=== PATIENT | male | born 1975 | race Caucasian/White ===

== ENCOUNTER 2024-01-12 16:24 | Emergency (ER) | payer OTHER, SELFPAY ==
[2024-01-12 16:40] VITALS: BP 178/97; PULSE 67; RESP 22; TEMP 36.9; O2SAT 98; BMI 31.3
--- NOTE | 2024-01-12 16:45 | ED.GENADULT ---
HPI - General Adult General Chief complaint: Dizziness/Vertigo Stated complaint: Dizzy, loss of vision, numbness in arm Time Seen by Provider: 01/12/24 16:32 History of Present Illness HPI narrative: Pt c/o blurring vision, dizziness, and head feeling weird that started around 1500 today 48-year-old man presenting to the emergency department with concern of head feeling weird blurring of vision and dizziness beginning about 2 hours prior to arrival. 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 He began to have altered vision such that he was experiencing some geometric shapes at the periphery of his vision left more than right but seemed generally throughout the periphery. And then started to experience tunnel vision. Currently does endorse headache or a an intense burning in the posterior head. He did not have weakness specifically. Did have a sense of lightheadedness more than actual dizziness though he did feel little unsteady one point. He is really worried that he is having a stroke. Underlying history of TBI having been in the and does have migraines. This is not like his history of migraines. He denies loss of sensation or hyperventilating. Does admit to feeling stressors anxious about this experience. He does recall that he felt like he lost a little bit of vision in the periphery at the left at 1 point. Related Data Home Medications Medication Instructions Recorded Confirmed losartan 50 mg tablet 50 mg PO ONCE 12/31/22 01/12/24 omeprazole 20 mg capsule,delayed 20 mg PO ONCE 12/31/22 01/12/24 release sildenafil 100 mg tablet 100 mg PO PRN sexual activity 12/31/22 09/19/23 Allergies Allergy/AdvReac Type Severity Reaction Status Date / Time Cephalosporins Allergy Severe Verified 01/12/24 16:43 shellfish derived Allergy Severe Anaphylaxis Verified 01/12/24 16:43 tree nut Allergy Severe Anaphylaxis Verified 01/12/24 16:43 Review of Systems Status of ROS: Reports: 6 or more systems reviewed and unremarkable except as noted in History and below [facility] Medical History Clavicle pain ?M89.8X1 - Other specified disorders of bone, shoulder (ICD-10) 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 Well built. Farm tattoos. Intermittent more flushed in his face is a seems to experience some more stress then pulling at the hair at the top of his head. Intermittently mildly increasing his rate of breathing. Cranial nerves 2-12 look to be intact. Moving all extremities without difficulty. At cranial nerves 2-12 are intact. Pupils are 3 mm equal briskly reactive and accommodating. Full visual holman bilaterally to confrontation. Extremities well perfused without edema. Heart with regular rate and rhythm. Lungs appear to be clear. Somewhat sore to palpation at the posterior gretchen cervical neck musculature at the insertion. Const: Vital Signs, click to edit/add: Vital Signs - 24 hr 01/12/24 16:40 01/12/24 17:20 Temperature 98.4 F Pulse Rate [Pulse Oximeter] 67 Respiratory Rate 22 Blood Pressure [Ri ght Upper Arm] 178/97 H Pulse Oximetry 98 98 Oxygen Delivery Me thod Room Air Room Air Documenting provider has reviewed patient's vital signs: yes Course Vital Signs Vital signs: Initial Vital Signs Temperature 98.4 F 01/12/24 16:40 Temperature Source Temporal Artery Scan 01/12/24 16:40 Pulse Rate 67 01/12/24 16:40 Respiratory Rate 22 01/12/24 16:40 Blood Pressure 178/97 H 01/12/24 16:40 Blood Pressure Mean 124 H 01/12/24 16:40 Blood Pressure Position Sitting 01/12/24 16:40 Pulse Oximetry 98 01/12/24 16:40 Oxygen Delivery Method Room Air 01/12/24 16:40 Vital Signs Temperature 98.4 F 01/12/24 16:40 Pulse Rate 67 01/12/24 16:40 Respiratory Rate 22 01/12/24 16:40 Blood Pressure 178/97 H 01/12/24 16:40 Pulse Oximetry 98 01/12/24 16:40 Oxygen Delivery Method Room Air 01/12/24 16:40 Temperature 98.4 F 01/12/24 16:40 Pulse Rate 67 01/12/24 16:40 Respiratory Rate 22 01/12/24 16:40 Blood Pressure 178/97 H 01/12/24 16:40 Pulse Oximetry 98 01/12/24 17:20 Oxygen Delivery Method Room Air 01/12/24 17:20 Medications Administered Medications: Discontinued Medications Generic Name Dose Route Start Last Admin Trade Name Bertha PRN Reason Stop Dose Admin Diazepam 2.5 mg 01/12/24 17:00 01/12/24 17:39 Diazepam 5 Mg/Ml Inj IV 01/12/24 17:01 2.5 mg ONCE ONE Administration Sodium Chloride 1,000 mls @ 1,000 mls/hr 01/12/24 17:00 01/12/24 18:07 0.9 % Sodium Chloride 1000 Ml IV 01/12/24 17:59 Infused .Q1H ONE Infusion Medical Decision Making MDM Narrative Medical decision making narrative: Frankly this appears to sound like migraine symptoms. Thirty stands to reason in the setting of history of TBI migraines. These are rather unusual symptoms though and perhaps a head CT would be warranted. Also new she IV and offered treatment for this apparent headache. He is overall improved with the visual symptoms have essentially faded. Left now with this burning headache. No weaknesses. IV fluids and low-dose Valium initially. I reviewed head CT imaging which looks to be unremarkable for acute abnormality. Over-read is pending. On reassessment he has received about 500 mL of normal saline. Overall is feeling improved. He looks less uncomfortable less anxious. He is just this time also receiving his Valium. I did discuss this case with Neurology. They in agreement that this is likely migraine. On reassessment symptoms have resolved. Definitely more relaxed. Discharge Plan Discharge Clinical Impression: Migraine Patient Disposition: Home w/ Parent or Adult Condition: Improved Additional Instructions: I am happy you are feeling better. Try to get a good night's sleep tonight. Stay well-hydrated. Return for new and focal weakness, persistent loss of vision, intractable headache. Prescriptions: No Action omeprazole 20 mg capsule,delayed release(DR/EC) 20 mg PO ONCE sildenafil 100 mg tablet 100 mg PO PRN (Reason: sexual activity) losartan 50 mg tablet 50 mg PO ONCE Follow Up/Referrals: Yokasta Balderas, OLIVIAC [Primary Care Provider] - Stand Alone Forms: [employer] Info Instructions
--- NOTE | 2024-01-12 17:00 | CT_ITS ---
Patient: LAZARA SARMIENTO Facility:?[facility] Patient ID:?[id number] Site Patient ID:?[id number]. Site :?[id number] Study:?CT-Head WITHOUT-01/12/2024 5:21:07 PM Ordering Physician:FUAD Final Report: INDICATION: ROSADO, VISION CHANGES, HEAD PRESSURE. HX OF RENAL CANCER TECHNIQUE: CT of the head was performed without IV contrast. COMPARISON: None. FINDINGS: Parenchyma: No acute hemorrhage, infarction, or mass. Ventricles and extra-axial spaces: Appropriate for age. Visualized paranasal sinuses: Moderate mucosal thickening of the bilateral ethmoid sinuses. Mild mucosal thickening of the bilateral maxillary sinuses. Mastoid air cells: Clear. Bones: No focal abnormality. Additional comment: None. IMPRESSION: 1. No acute intracranial abnormality. 2. Paranasal sinus mucosal thickening may represent acute sinusitis. Please note that all CT scans at this facility use dose modulation, iterative reconstruction, and/or weight-based dosing when appropriate to reduce radiation dose to as low as reasonably achievable. Dictated by Jose Juan Caceres MD @ 01/12/2024 5:57:31 PM Signed by:?Jose Juan Caceres MD @01/12/2024 5:57:31 PM (Electronic Signature)
[2024-01-12 17:20] VITALS: O2SAT 98
[2024-01-12] MEDS: 0.9 % SODIUM CHLORIDE 1000 ml 1,000 ML IV (17:30)
[2024-01-12] MEDS: diazePAM 5 MG/ML inj 2.5 MG IV (17:39)
== END 2024-01-12 19:26 | disposition home or self-care (01) ==
PROVIDERS: Emergency Provider Family Medicine; PCP Physician Assistant Medical
DX: G43.909 Migraine, unspecified, not intractable, without status migrainosus (principal)
CPT/HCPCS: 70450; 96374; 99284; J3360; J7030

== ENCOUNTER 2024-08-19 09:44 | Outpatient (CLI) | payer OTHER, SELFPAY ==
--- OUTSIDE RECORDS SUMMARY | 2024-08-19 09:50 | XMS_ITS | Continuity of Care Document ---
Author Name [facility] Organization [facility] Care Team Providers Care Nuclear Criticality Safety Engineer Name Role Phone [facility] Unavailable Unavailable Problems Combined list of problems from 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 It does not include entries that were removed or entered in error. Problem Status Onset Date Problem Type Date of Resolution Comments Source Exposure to potentially hazardous substance (RUST [id number]) Active 024 Condition Jan 22, 2024 Entered By: VLADIMIR GRIJALVA Comment: [facility] MARGE Documentation Initiative [facility] Strain of supraspinatus muscle AND/OR tendon Active 011 Condition [facility] visit for: refer patient without exam or treatment Active Condition DoD taking high-risk medication Active Condition DoD conditions influencing health status Active Condition DoD chronic pain Active Condition DoD visit for: issue repeat prescription for medication Inactive Condition DoD secondary insomnia Active Condition DoD depression Active Condition DoD axis IV problems occupational Active Condition DoD concussion Active Condition DoD visit for: screening exam traumatic brain injury Active Condition DoD visit for: screening mental / developmental disorders Inactive Condition DoD shoulder strain supraspinatus tendon right Inactive Condition DoD allergies Active Condition DoD bursitis subacromial Active Condition DoD joint pain, localized in the right shoulder Active Condition DoD tooth pain Active Condition DoD visit for: follow-up exam Inactive Condition DoD chest tightness or heavy pressure Inactive Condition DoD sleep disturbances Active Condition DoD sensorineural hearing loss Active Condition DoD assessment of patient condition work-related Active Condition DoD Central Auditory Function Test Nonspecific Abnormal Findings Active Condition DoD visit for: ears/hearing exam following abn hearing screening Active Condition DoD astigmatism regular Active Condition DoD refractive error - hypermetropia Active Condition DoD insomnia Active Condition DoD visit for: preoperative exam Inactive Condition DoD pain in the hands Active Condition DoD Occupational Therapy Active Condition DoD Aftercare Active Condition DoD joint pain, localized in the wrist Active Condition DoD visit for: administrative purpose Inactive Condition DoD Aftercare Following Surgery Active Condition DoD nontraumatic tendon rupture biceps Active Condition DoD wound infection Inactive Condition DoD patient's noncompliance with therapy Active Condition DoD Aftercare Following Surgery Of Musculoskeletal System Inactive Condition [facility] osteoarthritis localized secondary left little finger PIP Active Condition [facility] bone neoplasm, 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 Inactive Condition [facility] Aftercare Following Surgery For Injury / Trauma Inactive Condition [facility] Aftercare Orthopedic Active Condition [facility] Brace Inactive Condition [facility] adjustment disorder Active Condition [facility] visit for: screening exam pulmonary tuberculosis Inactive Condition [facility] Need For Vaccination Against Influenza Inactive Condition [facility] Blood Pressure Isolated Elevated Active Condition [facility] joint pain, localized in the shoulder Inactive Condition [facility] Other Physical Therapy Active Condition [facility] shoulder superior glenoid labrum lesion Inactive Condition [facility] shoulder superior glenoid labrum lesion right Inactive Condition DoD visit for: issue repeat prescription Inactive Condition DoD visit for: services physical Active Condition [facility] joint derangement shoulder region Active Condition [facility] Patient Training And Self-Care Skills Active Condition [facility] Back Muscle Spasm Inactive Condition [facility] muscle spasm Inactive Condition [facility] headache Inactive Condition [facility] earache Inactive Condition [facility] visit for: ears / hearing exam Active Condition [facility] visit for: services physical accession Active Condition [facility] routine examination Active Condition [facility] refractive error Active Condition [facility] Alcohol intake above recommended sensible limits Active Condition [facility] Anxiety Active Condition [facility] Bilateral sensory hearing loss Active Condition [facility] Carpal joint sprain Active Condition [facility] Chronic post-traumatic headache Active Condition [facility] Elevated liver enzymes level Active Condition [facility] Food anaphylaxis Active Condition Apr 18, 2014 Entered By: FRAN LINARES Comment: HAS TO USE EPIPEN [facility] Gastroesophageal reflux disease Active Condition [facility] Hand pain Active Condition [facility] Hyperlipidemia Active Condition [facility] Hyperlipidemia (SNOMED CT [id number]) Active Condition [facility] Hypertension Active Condition [facility] Idiopathic anaphylaxis Active [facility] Insomnia Active Condition [facility] Major depressive disorder Active Condition [facility] Obstructive sleep apnea syndrome Active Condition Oct 13, 2020 Entered By: TIFFANY CAMPOS Comment: on C-PAP [facility] Pain of left elbow joint Active Condition [facility] Primary malignant neoplasm of kidney Active Condition [facility] Rupture of tendon of biceps (SNOMED CT 413788716) Active Condition [facility] Shoulder pain Active Condition Feb Entered By: VARGHESE BOTELLO Comment: s/p R distal clavicle excision 2011 and slap repair x2 ([place] 2016 Entered By: ROSMERY,VARGHESE A A Comment: slap repair x2 [facility] Traumatic brain injury with loss of consciousness Active Condition [facility] Traumatic brain injury with loss of consciousness (SNOMED CT 020409961) Active Condition [facility] Tuberculosis screening status Active Condition [facility] Umbilical hernia Active Condition EDGAR RODRIGUEZ [facility] Diagnosis: ICD-10-CM C64.1 Malignant neoplasm of right kidney, except renal pelvis Active Diagnosis [facility] Diagnosis: ICD-10-CM H90.3 Sensorineural hearing loss, bilateral Active Diagnosis [facility] Diagnosis: ICD-10-CM F10.10 Alcohol abuse, uncomplicated Active Diagnosis [facility] Diagnosis: ICD-10-CM K62.89 Other specified diseases of anus and rectum Active Diagnosis [facility] Diagnosis: ICD-10-CM Z47.89 Encounter for other orthopedic aftercare Active Diagnosis [facility] Diagnosis: ICD-10-CM M25.512 Pain in left shoulder Active Diagnosis [facility] Diagnosis: ICD-10-CM Z71.9 Counseling, unspecified Active Diagnosis [facility] Diagnosis: ICD-10-CM Z87.820 Personal history of traumatic brain injury Active Diagnosis [facility] Diagnosis: ICD-10-CM Z13.6 Encounter for screening for cardiovascular disorders Active Diagnosis [facility] Diagnosis: ICD-10-CM Z01.818 Encounter for other preprocedural examination Active Diagnosis [facility] Diagnosis: ICD-10-CM I10 Essential (primary) hypertension Active Diagnosis [facility] Diagnosis: ICD-10-CM Z85.528 Personal history of other malignant neoplasm of kidney Active Diagnosis [facility] Diagnosis: ICD-10-CM F43.23 Adjustment disorder with mixed anxiety and depressed mood Active Diagnosis [facility] Diagnosis: ICD-10-CM G47.33 Obstructive sleep apnea (adult) (pediatric) Active Diagnosis [facility] Medications Combined list of outpatient medications from Department of Defense and [facility] Affairs facilities.Medications provided include 1) outpatient medications from the last 15 months, and 2) patient-reported medications. Medication Details Route Status Patient Instructions Prescription Expires Prescription Number Last Dispense Date Ordering Provider Order Date Order Qty Source ACETAMINOPH EN 500MG TAB ACETAMIN OPHEN 500MG TAB Active TAKE TWO TABLETS BY MOUTH THREE TIMES A DAY NEEDED FOR PAIN *NOT TO EXCEED 3000MG IN 24 HOURS FROM ALL SOURCES* Oct 01, 2023 200 Oct 01, 2024 [id number] A Jun 18, 2024 OLIVER SUMNER [facility] ORAL ACTIVE 10/01/2024 [id number] OLIVER SUMNER 2022 200 [facility] ALPRAZOLAM 0.5MG TAB ALPRAZOL AM 0.5MG TAB Non-VA TAKE ONE TABLET BY MOUTH Oct 29, 2016 Non-VA Document ed by: Deana PIÑA Document ed at: [facility] ORAL ACTIVE BRI PIÑA 2015 [facility] ASPIRIN 81MG TAB,EC ASPIRIN 81MG TAB,EC TAKE ONE TABLET BY MOUTH EVERY DAY TO PREVENT BLOOD CLOTS TO PREVENT BLOOD CLOTS Nov 24, 2023 14 Dec 24, 2023 [id number] Nov 24, [address] [facility] HCS ORAL 12/24/2023 [id number] FLYNN DAVIS ICA S 2023 14 [facility] BENZOYL PEROXIDE 10% (WATER BASED) GEL,TOP BENZOYL PEROXIDE 10% (WATER BASED) GEL,TOP APPLY THIN LAYER TOPICALL Y TWICE A DAY FOR PREVENTI ON OF INFECTIO N : TO SURGICAL SHOULDER STARTING 2 DAYS PRIOR TO SURGERY AND MORNING OF SURGERY. PROCEDUR E DATE: 11/24/23 : TO SURGICAL SHOULDER STARTING 2 DAYS PRIOR TO SURGERY AND MORNING OF SURGERY. PROCEDUR E DATE: 11/24/23 FOR PREVENTI ON OF INFECTIO N Nov 13, 2023 60 Dec 13, 2023 [id number] Nov 13, 2023 Deana BURTON T [facility] TOPICA L 12/13/2023 [id number] NISHA BURTON T 2022 60 [facility] CETIRIZINE HCL 10MG TAB CETIRIZI NE HCL 10MG TAB Non-VA TAKE ONE-HALF TABLET BY MOUTH EVERY DAY NEEDED Jul 20, 2013 Non-VA Document ed by: Deana CONLEY Document ed at: [facility] ORAL ACTIVE KAMRON CONLEY 2012 [facility] DOCUSATE NA 100MG CAP DOCUSATE NA 100MG CAP TAKE ONE CAPSULE BY MOUTH EVERY DAY FOR CONSTIPA TION FOR CONSTIPA TION Jul 14, 2024 30 Aug 13, 2024 [id number] Jul 16, 2024 Deana ALEXANDER E [facility] ORAL 08/13/2024 [id number] ELEONORA ALEXANDER E 2023 30 [place] [facility] DOCUSATE NA 100MG CAP DOCUSATE NA 100MG CAP TAKE ONE CAPSULE BY MOUTH EVERY DAY NEEDED FOR CONSTIPA TION FOR CONSTIPA TION Nov 24, 2023 20 Dec 24, 2023 [id number] Nov 24, 2023 MED DAVIS MARY S [place] [facility] ORAL 12/24/2023 [id number] FLYNN DAVIS ICA S 2023 20 [place] [facility] FISH OIL 1000MG (500MG DHA/EPA) CAP,ORAL FISH OIL 1000MG (500MG DHA/EPA) CAP,ORAL Non-VA TAKE 1 CAPSULE BY MOUTH EVERY DAY Dec 21, 2018 Non-VA Document ed by: LUIS GREENWOOD Document ed at: [place] [facility] ORAL ACTIVE TAYLOR WALDROP 2018 [place] [facility] HEMORRHOIDA L OINT,RTL HEMORRHO IDAL OINT,RTL APPLY THIN LAYER TO RECTUM FOUR TIMES A DAY NEEDED FOR PAIN AND ITCHING FOR PAIN AND ITCHING Jul 14, 2024 60 Aug 13, 2024 [id number] Jul 16, 2024 Deana ALEXANDER [facility] RECTAL 08/13/2024 [id number] 4 ELEONORA ALEXANDER E 2023 60 [place] [facility] LOSARTAN 50MG TAB LOSARTAN 50MG TAB Disconti nued TAKE ONE TABLET BY MOUTH EVERY DAY FOR BLOOD PRESSURE Aug 13, 2023 90 Aug 13, 2024 [id number] C Jun 24, 2024 OLIVER SUMNER [facility] ORAL DISCONT INUED (EDIT) 08/13/2024 [id number] OLIVER SUMNER 2022 90 [facility] LOSARTAN 50MG TAB LOSARTAN 50MG TAB Disconti nued TAKE ONE TABLET BY MOUTH EVERY DAY FOR BLOOD PRESSURE Dec 25, 2022 90 Dec 26, 2023 [id number] B Jul 04, 2023 KIMMY NAILS W [facility] ORAL DISCONT INUED 12/26/2023 [id number] SUKUMAR NAILS 2022 90 [facility] LOSARTAN POTASSIUM 100MG TAB [place] POTASSIU M 100MG TAB Active: On Hold TAKE ONE TABLET BY MOUTH EVERY DAY FOR BLOOD PRESSURE FOR BLOOD PRESSURE Jul 14, 2024 90 Jul 15, 2025 [id number] Deana [facility] E [facility] ORAL HOLD 07/15/2025 [id number] ELEONORA ALEXANDER E 2023 90 [facility] NAPROX[facility] 500MG TAB NAPROXEN 500MG TAB TAKE ONE TABLET BY MOUTH TWO TIMES A DAY FOR PAIN FOR PAIN Aug 13, 2023 28 Sep 12, 2023 [id number] Aug 13, 2023 OLIVER SUMNER [facility] ORAL 09/12/2023 [id number] OLIVER SUMNER 2022 28 [facility] ONDANSETRON HCL 4MG TAB ONDANSET MARLO HCL 4MG TAB Active TAKE ONE TABLET BY MOUTH EVERY 8 HOURS NEEDED FOR NAUSEA AND VOMITING FOR NAUSEA AND VOMITING Nov 24, 2023 10 Nov 24, 2024 [id number] Nov 24, 2023 MED DAVIS S [facility] ORAL ACTIVE 11/24/2024 [id number] FLYNN DAVIS ICA S 2023 10 [facility] OXYCODONE HCL 5MG TAB OXYCODON E HCL 5MG TAB TAKE ONE TABLET BY MOUTH EVERY 4 HOURS NEEDED FOR PAIN FOR PAIN Nov 24, 2023 25 Dec 24, 2023 [id number] Nov 24, 2023 MED DAVIS S [facility] ORAL 12/24/2023 [id number] FLYNN DAVIS S 2023 25 [facility] RED YEAST RICE CAP/TAB RED YEAST RICE CAP/TAB Non-VA TAKE BY MOUTH EVERY DAY Dec 21, 2018 Non-VA Document ed by: LUIS GREENWOOD Document ed at: [facility] ORAL ACTIVE TAYLOR WALDROP 2018 [facility] SILDENAFIL CITRATE 100MG TAB SILDENAF IL CITRATE 100MG TAB Active TAKE ONE TABLET BY MOUTH EVERY DAY NEEDED FOR ERECTILE DYSFUNCT ION 1 HOUR BEFORE ANTICIPA BRITTNY SEXUAL ACTIVITY FOR ERECTILE DYSFUNCT ION 2024 18 May 25, 2025 [id number] May 25, 2024 OLIVER SUMNER [facility] ORAL ACTIVE 05/25/2025 [id number] OLIVER SUMNER 2023 18 [facility] SILDENAFIL CITRATE 100MG TAB SILDENAF IL CITRATE 100MG TAB TAKE ONE TABLET BY MOUTH EVERY DAY NEEDED FOR ERECTILE DYSFUNCT ION 1 HOUR BEFORE ANTICIPA BRITTNY SEXUAL ACTIVITY FOR ERECTILE DYSFUNCT ION April 03, 2023 18 Dec 26, 2023 [id number] Oct 17, 2023 KIMMY NAILS W [facility] ORAL 12/26/2023 [id number] SUKUMAR NAILS W 2022 18 [facility] SUMATRIPTAN SUCCINATE 25MG TAB SUMATRIP KRAMER SUCCINAT E 25MG TAB TAKE ONE TABLET BY MOUTH EVERY DAY NEEDED FOR MIGRAINE HEADACHE . MAY REPEAT AFTER 2 HOURS IF NEEDED. MAXIMUM OF 200 MG IN 24 HOURS. Dec 26, 2022 9 Dec 27, 2023 [id number] Oct 17, 2023 OLIVER SUMNER [facility] ORAL 12/27/2023 [id number] OLIVER SUMNER 2022 9 [facility] Allergies, Adverse Reactions, Alerts Combined list of allergies from 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 It does not include entries that were removed or entered in error. Substance Category Reaction Severity Reaction type Status Date Reported Comments Source AMLODIPINE Propensity to adverse reactions to drug (finding) Edema of lower extremity active 0 [facility] CEFAZOLIN Drug allergy (disorder) Unknown active 1 [facility]ler CEPHALOSPORI N 1ST GENERATION Propensity to adverse reactions to drug (finding) active 3 [facility] CEPHALOSPORI N 1ST GENERATION Propensity to adverse reactions to drug (finding) Anaphylaxis active 7 [facility] CEPHALOSPORI NS - 1ST GENERATION Drug allergy (disorder) active 3 Dante [facility] PECANS Propensity to adverse reactions to food (finding) Anaphylaxis active 4 [facility] SHELLFISH Propensity to adverse reactions to food (finding) Anaphylaxis active 7 [facility] SHELLFISH {Cla } Food allergy (disorder) Anaphylaxis active 1 [facility] STRAWBERRIES Propensity to adverse reactions to food (finding) Anaphylaxis active 4 [facility] Immunizations Combined list of available immunizations from the 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 Immunization Series Date Given Administered By Site Reaction Lot Number CVX Code Drug In Home Tutor Status Comments Source INFLUENZA, INJECTABLE, QUADRIVALENT, PRESERVATIVE FREE 2022 SEEMA HONG RIGHT DELTO ID [id number] A 150 complet ed [facility] INFLUENZA, INJECTABLE, QUADRIVALENT, PRESERVATIVE FREE 2021 150 complet ed [facility] COVID-19 (MODERNA), MRNA, LNP-S, PF, 100 MCG/0.5ML DOSE OR 50 MCG/0.25ML DOSE 2021 207 complet ed [facility] PNEUMOCOCCAL POLYSACCHARID E PPV23 2020 33 complet ed [facility] COVID-19 (MODERNA), MRNA, LNP-S, PF, 100 MCG/0.5 ML DOSE 2 2020 207 complet ed [facility] COVID-19 (MODERNA), MRNA, LNP-S, PF, 100 MCG/0.5 ML DOSE 1 2020 207 complet ed [facility] INFLUENZA, INJECTABLE, QUADRIVALENT, PRESERVATIVE FREE 2019 150 complet ed [facility] TD (ADULT), 2 LF TETANUS TOXOID, PRESERVATIVE FREE, ADSORBED 2019 09 complet ed [employer] [id number] 03/05/21 [facility] INFLUENZA, INJECTABLE, QUADRIVALENT, PRESERVATIVE FREE 2018 150 complet ed Partner: [facility]. Administe red by: [facility] Clinician (NPI=Not Provided) . Partner 7 Lot#: [id number] Mfr: GlaxoSmit hKline [facility] INFLUENZA, INJECTABLE, QUADRIVALENT, PRESERVATIVE FREE 2017 150 complet ed Partner: [facility]. Administe red by: [facility] Clinician (NPI=Not Provided) . Partner 7 Lot#: [id number] Mfr: Sanofi Pasteur [facility] INFLUENZA, SEASONAL, INJECTABLE, PRESERVATIVE FREE 2016 140 complet ed [facility] INFLUENZA (HISTORICAL) 2015 88 complet ed [facility] INFLUENZA, SEASONAL, INJECTABLE 2015 141 complet ed [facility] INFLUENZA (HISTORICAL) 2014 88 complet ed [facility] ([facility]) INFLUENZA FY11 A (HISTORICAL) 2013 88 complet ed [facility] INFLUENZA, UNSPECIFIED FORMULATION 2012 BLADIMIR ROLLE A 88 comple t ed [facility] INFLUENZA (HISTORICAL) 2012 88 complet ed [facility] ([facility]CU) Influenza, seasonal, injectable 1 2011 UNK 141 Unknown (UNK) comple t ed Influenza , seasonal, injectabl e [facility] influenza virus vaccine, live, attenuated, for intranasal use 1 2010 [id number] [employer] (MED) complet ed influenza virus vaccine, live, attenuate d, for intranasa l use [facility] influenza virus vaccine, split virus (incl. purified surface antigen)-reti red CODE 1 2010 [id number] Unknown (UNK) comple t ed influenza virus vaccine, split virus (incl. purified surface antigen)- retired CODE [facility] hepatitis B vaccine, adult dosage 4 [id number] [place] [address] (SKB) complet ed hepatitis B vaccine, adult dosage [facility] TDAP 2009 115 complet ed [place] [facility] TDAP 2009 115 complet ed per pt [facility] anthrax vaccine 4 2008 [id number] Unknown (UNK) comple t ed anthrax vaccine DoD Novel influenza-H1N 1-09, injectable 1 2008 [id number] 127 [employer] (NOV) complet ed Novel influenza -[id number], injectabl e DoD influenza virus vaccine, live, attenuated, for intranasal use 1 2008 [id number] 111 Unknown (UNK) comple t ed influenza virus vaccine, live, attenuate d, for intranasa l use DoD anthrax vaccine 3 2008 UNK 24 Unknown (UNK) comple t ed anthrax vaccine DoD hepatitis B vaccine, adult dosage 3 2008 UNK 43 Unknown (UNK) comple t ed hepatitis B vaccine, adult dosage DoD anthrax vaccine 2 2008 UNK 24 Unknown (UNK) comple t ed anthrax vaccine DoD anthrax vaccine 1 2008 [id number] [employer] [place] ([facility]) complet ed anthrax vaccine DoD typhoid Vi capsular polysaccharid e vaccine 1 2008 [id number] Sanofi Pasteur (PMC) complet ed typhoid Vi capsular polysacch aride vaccine DoD hepatitis B vaccine, pediatric or pediatric/ado lescent dosage 2 2008 [id number] 08 San[employer] Paste[employer] (PMC) complet ed hepatitis B vaccine, pediatric or pediatric /adolesce nt dosage DoD hepatitis B vaccine, adult dosage 1 2008 [id number] 43 Sanofi Pasteur (PMC) complet ed hepatitis B vaccine, adult dosage DoD influenza virus vaccine, live, attenuated, for intranasal use 1 2008 [id number] [employer]. (MED) complet ed influenza virus vaccine, live, attenuate d, for intranasa l use DoD measles, mumps and rubella virus vaccine 1 2008 UNK 03 Unknown (UNK) Not Given measles, mumps and rubella virus vaccine DoD varicella virus vaccine 1 2008 UNK 21 Unknown (UNK) Not Given varicella virus vaccine DoD hepatitis A vaccine, adult dosage 1 2008 UNK 52 Unknown (UNK) Not Given hepatitis A vaccine, adult dosage DoD poliovirus vaccine, inactivated 1 2008 [id number] 10 Sanofi Pasteur (PMC) complet ed polioviru s vaccine, inactivat ed DoD meningococcal polysaccharid e (groups A, C, Y and W-135) diphtheria toxoid conjugate vaccine (MCV4P) 1 2008 [id number] 114 San[employer] Paste[employer] (PMC) complet ed meningoco ccal polysacch aride (groups A, C, Y and W-135) diphtheri a toxoid conjugate vaccine (MCV4P) DoD tetanus toxoid, reduced diphtheria toxoid, and acellular pertu is vaccine, adsorbed 1 2008 [id number] 115 Sanofi Pasteur (PMC) complet ed tetanus toxoid, reduced diphtheri a toxoid, and acellular pertussis vaccine, adsorbed DoD Results Combined list of recent chemistry, hematology and other laboratory results from Department of Defense and Veterans Affairs, ranging from 15 months to all on record, depending upon the facility. Order Name Results Value Reference Range Date Interpretation Specimen Comments Source COMPREHEN SIVE METABOLIC PANEL+MG CREATININE [MASS/VOLUM E] IN SERUM OR PLASMA 1.0 mg/dL 0.7 - 1.2 08/12 Specimen Type: PLASMA No comment entered. Ordering Provider: OLIVER SUMNER Report Released Date/Time: Aug 13, 2023 03:43 PM Reporting Lab: [facility] [id number] Performing Lab: [facility] [id number] [facility] COMPREHEN SIVE METABOLIC PANEL+MG UREA NITROGEN [MASS/VOLUM E] IN SERUM OR PLASMA 17 mg/dL 8 - 26 08/12 Specimen Type: PLASMA No comment entered. Ordering Provider: OLIVER SUMNER Report Released Date/Time: Aug 13, 2023 03:43 PM Reporting Lab: [facility] [id number] Performing Lab: [facility] [id number] [facility] COMPREHEN SIVE METABOLIC PANEL+MG GLUCOSE [MASS/VOLUM E] IN SERUM OR PLASMA 123 mg/dL 70 - 100 08/12 H Specimen Type: PLASMA No comment entered. Ordering Provider: OLIVER SUMNER Report Released Date/Time: Aug 13, 2023 03:43 PM Reporting Lab: [facility] [id number] Performing Lab: [facility] [id number] [place] [facility] COMPREHEN SIVE METABOLIC PANEL+MG SODIUM [MOLES/VOLU ME] IN SERUM OR PLASMA 140 mmol/L 136 - 145 08/12 Specimen Type: PLASMA No comment entered. Ordering Provider: OLIVER SUMNER Report Released Date/Time: Aug 13, 2023 03:43 PM Reporting Lab: [facility] [address] Performing Lab: [facility] [address] [place] [facility] COMPREHEN SIVE METABOLIC PANEL+MG POTASSIUM [MOLES/VOLU ME] IN SERUM OR PLASMA 4.1 mmol/L 3.5 - 5.1 08/12 Specimen Type: PLASMA No comment entered. Ordering Provider: OLIVER SUMNER Report Released Date/Time: Aug 13, 2023 03:43 PM Reporting Lab: [facility] [address] Performing Lab: [facility] [address] [place] [facility] COMPREHEN SIVE METABOLIC PANEL+MG CHLORIDE [MOLES/VOLU ME] IN SERUM OR PLASMA 107 mmol/L 98 - 107 08/12 Specimen Type: PLASMA No comment entered. Ordering Provider: OLIVER SUMNER Report Released Date/Time: Aug 13, 2023 03:43 PM Reporting Lab: [facility] [address] Performing Lab: [facility] [address] [place] [facility] COMPREHEN SIVE METABOLIC PANEL+MG CARBON DIOXIDE, TOTAL [MOLES/VOLU ME] IN SERUM OR PLASMA 27 mmol/L 22 - 29 08/12 Specimen Type: PLASMA No comment entered. Ordering Provider: OLIVER SUMNER Report Released Date/Time: Aug 13, 2023 03:43 PM Reporting Lab: [facility] [address] Performing Lab: [facility] [address] [place] [facility] COMPREHEN SIVE METABOLIC PANEL+MG CALCIUM [MASS/VOLUM E] IN SERUM OR PLASMA 9.0 mg/dL 8.4 - 10.2 08/12 Specimen Type: PLASMA No comment entered. Ordering Provider: OLIVER SUMNER Report Released Date/Time: Aug 13, 2023 03:43 PM Reporting Lab: [facility] [address] Performing Lab: [facility] [address] [place] [facility] COMPREHEN SIVE METABOLIC PANEL+MG PROTEIN [MASS/VOLUM E] IN SERUM OR PLASMA 7.3 g/dL 6.4 - 8.3 08/12 Specimen Type: PLASMA No comment entered. Ordering Provider: OLIVER SUMNER Report Released Date/Time: Aug 13, 2023 03:43 PM Reporting Lab: [facility] [address] Performing Lab: [facility] [address] [place] [facility] COMPREHEN SIVE METABOLIC PANEL+MG ALBUMIN [MASS/VOLUM E] IN SERUM OR PLASMA 4.4 g/dL 3.5 - 5.2 08/12 Specimen Type: PLASMA No comment entered. Ordering Provider: OLIVER SUMNER Report Released Date/Time: Aug 13, 2023 03:43 PM Reporting Lab: [facility] [address] Performing Lab: [facility] [address] [place] [facility] COMPREHEN SIVE METABOLIC PANEL+MG BILIRUBIN.T OTAL [MASS/VOLUM E] IN SERUM OR PLASMA 0.9 mg/dL 0.2 - 1.2 08/12 Specimen Type: PLASMA No comment entered. Ordering Provider: OLIVER SUMNER Report Released Date/Time: Aug 13, 2023 03:43 PM Reporting Lab: [facility] [address] Performing Lab: [facility] [address] [place] [facility] COMPREHEN SIVE METABOLIC PANEL+MG MAGNESIUM [MASS/VOLUM E] IN SERUM OR PLASMA 2.1 mg/dL 1.6 - 2.6 08/12 Specimen Type: PLASMA No comment entered. Ordering Provider: OLIVER SUMNER Report Released Date/Time: Aug 13, 2023 03:43 PM Reporting Lab: [facility] [address] Performing Lab: [facility] [address] [place] [facility] COMPREHEN SIVE METABOLIC PANEL+MG ANION GAP IN SERUM OR PLASMA 6 mmol/L 5 - 15 08/12 Specimen Type: PLASMA No comment entered. Ordering Provider: OLIVER SUMNER Report Released Date/Time: Aug 13, 2023 03:43 PM Reporting Lab: [facility] [address] Performing Lab: [facility] [address] [place] [facility] COMPREHEN SIVE METABOLIC PANEL+MG ALKALINE PHOSPHATASE [ENZYMATIC ACTIVITY/VO LUME] IN SERUM OR PLASMA 59 U/L 40 - 150 08/12 Specimen Type: PLASMA No comment entered. Ordering Provider: OLIVER SUMNER Report Released Date/Time: Aug 13, 2023 03:43 PM Reporting Lab: [facility] [address] Performing Lab: [facility] [address] [place] [facility] COMPREHEN SIVE METABOLIC PANEL+MG ALANINE AMINOTRANSF ERASE [ENZYMATIC ACTIVITY/VO LUME] IN SERUM OR PLASMA 107 U/L <44 - 44 08/12 H Specimen Type: PLASMA No comment entered. Ordering Provider: OLIVER SUMNER Report Released Date/Time: Aug 13, 2023 03:43 PM Reporting Lab: [facility] [address] Performing Lab: [facility] [address] [place] [facility] COMPREHEN SIVE METABOLIC PANEL+MG ASPARTATE AMINOTRANSF ERASE [ENZYMATIC ACTIVITY/VO LUME] IN SERUM OR PLASMA 76 U/L 11 - 34 08/12 H Specimen Type: PLASMA No comment entered. Ordering Provider: OLIVER SUMNER Report Released Date/Time: Aug 13, 2023 03:43 PM Reporting Lab: [facility] [address] Performing Lab: [facility] [address] [place] [facility] COMPREHEN SIVE METABOLIC PANEL+MG GLOMERULAR FILTRATION RATE/1.73 SQ M.PREDICTED [VOLUME RATE/AREA] IN SERUM, PLASMA OR BLOOD BY CREATININE- BASED FORMULA (CKD-EPI 2020) >90 60 08/12 Specimen Type: PLASMA No comment entered. Ordering Provider: OLIVER SUMNER Report Released Date/Time: Aug 13, 2023 03:43 PM Reporting Lab: [facility] [address] Performing Lab: [facility] [address] [place] [facility] PSA PROSTATE SPECIFIC AG [MASS/VOLUM E] IN SERUM OR PLASMA 0.56 ng/mL <4.00 - 4.00 08/12 Specimen Type: SERUM No comment entered. Ordering Provider: OLIVER SUMNER Report Released Date/Time: Aug 13, 2023 03:43 PM Reporting Lab: [facility] [address] Performing Lab: [place] [address] [facility] CREATININ E(INCLUDE S EGFR) CREATININE [MASS/VOLUM E] IN SERUM OR PLASMA 1.0 mg/dL 0.7 - 1.2 08/12 Specimen Type: PLASMA No comment entered. Ordering Provider: ESTEPHANIA DOWNING Report Released Date/Time: Aug 15, 2023 01:11 PM Reporting Lab: [facility] [address] Performing Lab: [facility] [address] [facility] CREATININ E(INCLUDE S EGFR) GLOMERULAR FILTRATION RATE/1.73 SQ M.PREDICTED [VOLUME RATE/AREA] IN SERUM, PLASMA OR BLOOD BY CREATININE- BASED FORMULA (CKD-EPI 2020) >90 60 08/12 Specimen Type: PLASMA No comment entered. Ordering Provider: ESTEPHANIA DOWNING Report Released Date/Time: Aug 15, 2023 01:11 PM Reporting Lab: [facility] [address] Performing Lab: [facility] [address] [place] [facility] ALBUMIN ALBUMIN [MASS/VOLUM E] IN SERUM OR PLASMA 4.5 g/dL 3.5 - 5.2 11/11 Specimen Type: PLASMA No comment entered. Ordering Provider: DEVORA DAVIS Report Released Date/Time: Nov 11, 2023 09:52 AM Reporting Lab: [facility] [address] Performing Lab: [facility] [address] [place] [facility] BASIC METABOLIC PANEL+MG CREATININE [MASS/VOLUM E] IN SERUM OR PLASMA 1.0 mg/dL 0.7 - 1.2 11/11 Specimen Type: PLASMA No comment entered. Ordering Provider: DEVORA DAVIS Report Released Date/Time: Nov 11, 2023 09:52 AM Reporting Lab: [facility] [address] Performing Lab: [facility] [address] [place] [facility] BASIC METABOLIC PANEL+MG UREA NITROGEN [MASS/VOLUM E] IN SERUM OR PLASMA 13 mg/dL 8 - 11/11 Specimen Type: PLASMA No comment entered. Ordering Provider: DEVORA DAVIS Report Released Date/Time: Nov 11, 2023 09:52 AM Reporting Lab: [facility] [address] Performing Lab: [facility] [address] [place] [facility] BASIC METABOLIC PANEL+MG GLUCOSE [MASS/VOLUM E] IN SERUM OR PLASMA 176 mg/dL 70 - 100 11/11 H Specimen Type: PLASMA No comment entered. Ordering Provider: DEVORA DAVIS Report Released Date/Time: Nov 11, 2023 09:52 AM Reporting Lab: [facility] [address] Performing Lab: [facility] [address] [place] [facility] BASIC METABOLIC PANEL+MG SODIUM [MOLES/VOLU ME] IN SERUM OR PLASMA 136 mmol/L 136 - 145 11/11 Specimen Type: PLASMA No comment entered. Ordering Provider: DEVORA DAVIS Report Released Date/Time: Nov 11, 2023 09:52 AM Reporting Lab: [facility] [address] Performing Lab: [facility] [address] [place] [facility] BASIC METABOLIC PANEL+MG POTASSIUM [MOLES/VOLU ME] IN SERUM OR PLASMA 4.2 mmol/L 3.5 - 5.1 11/11 Specimen Type: PLASMA No comment entered. Ordering Provider: DEVORA DAVIS Report Released Date/Time: Nov 11, 2023 09:52 AM Reporting Lab: [facility] [address] Performing Lab: [facility] [address] [place] [facility] BASIC METABOLIC PANEL+MG CHLORIDE [MOLES/VOLU ME] IN SERUM OR PLASMA 103 mmol/L 98 - 107 11/11 Specimen Type: PLASMA No comment entered. Ordering Provider: DEVORA DAVIS Report Released Date/Time: Nov 11, 2023 09:52 AM Reporting Lab: [facility] [address] Performing Lab: [facility] [address] [place] [facility] BASIC METABOLIC PANEL+MG CARBON DIOXIDE, TOTAL [MOLES/VOLU ME] IN SERUM OR PLASMA 23 mmol/L 22 - 29 11/11 Specimen Type: PLASMA No comment entered. Ordering Provider: DEVORA DAVIS Report Released Date/Time: Nov 11, 2023 09:52 AM Reporting Lab: [facility] [address] Performing Lab: [facility] [address] [place] [facility] BASIC METABOLIC PANEL+MG CALCIUM [MASS/VOLUM E] IN SERUM OR PLASMA 9.1 mg/dL 8.4 - 10.2 11/11 Specimen Type: PLASMA No comment entered. Ordering Provider: DEVORA DAVIS Report Released Date/Time: Nov 11, 2023 09:52 AM Reporting Lab: [facility] [address] Performing Lab: [facility] [address] [place] [facility] BASIC METABOLIC PANEL+MG MAGNESIUM [MASS/VOLUM E] IN SERUM OR PLASMA 2.1 mg/dL 1.6 - 2.6 11/11 Specimen Type: PLASMA No comment entered. Ordering Provider: DEVORA DAVIS Report Released Date/Time: Nov 11, 2023 09:52 AM Reporting Lab: [facility] [address] Performing Lab: [facility] [address] [place] [facility] BASIC METABOLIC PANEL+MG ANION GAP IN SERUM OR PLASMA 10 mmol/L 5 - 15 11/11 Specimen Type: PLASMA No comment entered. Ordering Provider: DEVORA DAVIS Report Released Date/Time: Nov 11, 2023 09:52 AM Reporting Lab: [facility] [address] Performing Lab: [facility] [address] [place] [facility] BASIC METABOLIC PANEL+MG GLOMERULAR FILTRATION RATE/1.73 SQ M.PREDICTED [VOLUME RATE/AREA] IN SERUM, PLASMA OR BLOOD BY CREATININE- BASED FORMULA (CKD-EPI 2020) >90 60 11/11 Specimen Type: PLASMA No comment entered. Ordering Provider: DEVORA DAVIS Report Released Date/Time: Nov 11, 2023 09:52 AM Reporting Lab: [facility] [address] Performing Lab: [facility] [address] [place] [facility] CBC & DIFF LEUKOCYTES [#/VOLUME] IN BLOOD BY AUTOMATED COUNT 4.08 10*3/u L 4.0 - 11.0 11/11 Specimen Type: BLOOD Comment: Automated Differentia l Performed Ordering Provider: DEVORA DAVIS Report Released Date/Time: Nov 11, 2023 09:52 AM Reporting Lab: [facility] [address] Performing Lab: [facility] [address] [place] [facility] CBC & DIFF ERYTHROCYTE S [#/VOLUME] IN BLOOD BY AUTOMATED COUNT 4.64 10*6/u L 4.6 - 6.2 11/11 Specimen Type: BLOOD Comment: Automated Differentia l Performed Ordering Provider: DEVORA DAVIS Report Released Date/Time: Nov 11, 2023 09:52 AM Reporting Lab: [facility] [address] Performing Lab: [facility] [address] [place] [facility] CBC & DIFF HEMOGLOBIN [MASS/VOLUM E] IN BLOOD 15.8 g/dL 13.5 - 17.9 11/11 Specimen Type: BLOOD Comment: Automated Differentia l Performed Ordering Provider: DEVORA DAVIS Report Released Date/Time: Nov 11, 2023 09:52 AM Reporting Lab: [facility] [address] Performing Lab: [facility] [address] [place] [facility] CBC & DIFF HEMATOCRIT [VOLUME FRACTION] OF BLOOD BY AUTOMATED COUNT 42.8 41 - 54 11/11 Specimen Type: BLOOD Comment: Automated Differentia l Performed Ordering Provider: DEVORA DAVIS Report Released Date/Time: Nov 11, 2023 09:52 AM Reporting Lab: [facility] [address] Performing Lab: [facility] [address] [place] [facility] CBC & DIFF MCV [ENTITIC VOLUME] BY AUTOMATED COUNT 92.2 fL 80 - 100 11/11 Specimen Type: BLOOD Comment: Automated Differentia l Performed Ordering Provider: DEVORA DAVIS Report Released Date/Time: Nov 11, 2023 09:52 AM Reporting Lab: [facility] [address] Performing Lab: [facility] [address] [place] [facility] CBC & DIFF MCH [ENTITIC MASS] BY AUTOMATED COUNT 34.1 pg 27 - 33 11/11 H Specimen Type: BLOOD Comment: Automated Differentia l Performed Ordering Provider: DEVORA ADVIS Report Released Date/Time: Nov 11, 2023 09:52 AM Reporting Lab: [facility] [address] Performing Lab: [facility] [address] [place] [facility] CBC & DIFF MCHC [MASS/VOLUM E] BY AUTOMATED COUNT 36.9 g/dL 32.0 - 37.5 11/11 Specimen Type: BLOOD Comment: Automated Differentia l Performed Ordering Provider: DEVORA DAVIS Report Released Date/Time: Nov 11, 2023 09:52 AM Reporting Lab: [facility] [address] Performing Lab: [facility] [address] [place] [facility] CBC & DIFF PLATELETS [#/VOLUME] IN BLOOD BY AUTOMATED COUNT 197 10*3/u L 150 - 400 11/11 Specimen Type: BLOOD Comment: Automated Differentia l Performed Ordering Provider: DEVORA DAVIS Report Released Date/Time: Nov 11, 2023 09:52 AM Reporting Lab: [facility] [address] Performing Lab: [facility] [address] [place] [facility] CBC & DIFF PLATELET MEAN VOLUME [ENTITIC VOLUME] IN BLOOD BY AUTOMATED COUNT 9.4 fL 7.4 - 10.4 11/11 Specimen Type: BLOOD Comment: Automated Differentia l Performed Ordering Provider: DEVORA DAVIS Report Released Date/Time: Nov 11, 2023 09:52 AM Reporting Lab: [facility] [address] Performing Lab: [facility] [address] [place] [facility] CBC & DIFF NEUTROPHILS /100 LEUKOCYTES IN BLOOD BY MANUAL COUNT 48.0 40.0 - 80.0 11/11 Specimen Type: BLOOD Comment: Automated Differentia l Performed Ordering Provider: DEVORA DAVIS Report Released Date/Time: Nov 11, 2023 09:52 AM Reporting Lab: [facility] [address] Performing Lab: [facility] [address] [place] [facility] CBC & DIFF LYMPHOCYTES /100 LEUKOCYTES IN BLOOD BY MANUAL COUNT 31.9 15.0 - 45.0 11/11 Specimen Type: BLOOD Comment: Automated Differentia l Performed Ordering Provider: DEVORA DAVIS Report Released Date/Time: Nov 11, 2023 09:52 AM Reporting Lab: [facility] [address] Performing Lab: [facility] [address] [place] [facility] CBC & DIFF MONOCYTES/1 00 LEUKOCYTES IN BLOOD BY AUTOMATED COUNT 10.8 2.0 - 12.0 11/11 Specimen Type: BLOOD Comment: Automated Differentia l Performed Ordering Provider: DEVORA DAVIS Report Released Date/Time: Nov 11, 2023 09:52 AM Reporting Lab: [facility] [address] Performing Lab: [facility] [address] [place] [facility] CBC & DIFF EOSINOPHILS /100 LEUKOCYTES IN BLOOD BY AUTOMATED COUNT 6.6 0.0 - 6.0 11/11 H Specimen Type: BLOOD Comment: Automated Differentia l Performed Ordering Provider: DEVORA DAVIS Report Released Date/Time: Nov 11, 2023 09:52 AM Reporting Lab: [facility] [address] Performing Lab: [facility] [address] [place] [facility] CBC & DIFF BASOPHILS/1 00 LEUKOCYTES IN BLOOD BY MANUAL COUNT 2.0 0.0 - 2.0 11/11 Specimen Type: BLOOD Comment: Automated Differentia l Performed Ordering Provider: DEVORA DAVIS Report Released Date/Time: Nov 11, 2023 09:52 AM Reporting Lab: [facility] [address] Performing Lab: [facility] [address] [place] [facility] CBC & DIFF ERYTHROCYTE DISTRIBUTIO N WIDTH [RATIO] BY AUTOMATED COUNT 12.0 11.5 - 14.5 11/11 Specimen Type: BLOOD Comment: Automated Differentia l Performed Ordering Provider: DEVORA DAVIS Report Released Date/Time: Nov 11, 2023 09:52 AM Reporting Lab: [facility] [address] Performing Lab: [facility] [address] [place] [facility] CBC & DIFF LYMPHOCYTES [#/VOLUME] IN BLOOD BY AUTOMATED COUNT 1.30 10*3/u L 1.0 - 4.0 11/11 Specimen Type: BLOOD Comment: Automated Differentia l Performed Ordering Provider: DEVORA DAVIS Report Released Date/Time: Nov 11, 2023 09:52 AM Reporting Lab: [facility] [address] Performing Lab: [facility] [address] [place] [facility] CBC & DIFF MONOCYTES [#/VOLUME] IN BLOOD BY AUTOMATED COUNT 0.44 10*3/u L 0.1 - 1.0 11/11 Specimen Type: BLOOD Comment: Automated Differentia l Performed Ordering Provider: DEVORA DAVIS Report Released Date/Time: Nov 11, 2023 09:52 AM Reporting Lab: [facility] [address] Performing Lab: [facility] [address] [place] [facility] CBC & DIFF NEUTROPHILS [#/VOLUME] IN BLOOD BY AUTOMATED COUNT 1.96 10*3/u L 2.0 - 7.7 11/11 L Specimen Type: BLOOD Comment: Automated Differentia l Performed Ordering Provider: DEVORA DAVIS Report Released Date/Time: Nov 11, 2023 09:52 AM Reporting Lab: [facility] [address] Performing Lab: [facility] [address] [place] [facility] CBC & DIFF EOSINOPHILS [#/VOLUME] IN BLOOD BY AUTOMATED COUNT 0.27 10*3/u L 0 - 0.5 11/11 Specimen Type: BLOOD Comment: Automated Differentia l Performed Ordering Provider: DEVORA DAVIS Report Released Date/Time: Nov 11, 2023 09:52 AM Reporting Lab: [facility] [address] Performing Lab: [facility] [address] [facility] [place] [facility] CBC & DIFF BASOPHILS [#/VOLUME] IN BLOOD BY AUTOMATED COUNT 0.08 10*3/u L 0 - 0.2 11/11 Specimen Type: BLOOD Comment: Automated Differentia l Performed Ordering Provider: DEVORA DAVIS Report Released Date/Time: Nov 11, 2023 09:52 AM Reporting Lab: [facility] [address] Performing Lab: [facility] [address] [place] [facility] CBC & DIFF IG(META,MYE LO,PRO) 0.7 11/11 Specimen Type: BLOOD Comment: Automated Differentia l Performed Ordering Provider: DEVORA DAVIS Report Released Date/Time: Nov 11, 2023 09:52 AM Reporting Lab: [facility] [address] Performing Lab: [facility] [address] [place] [facility] CBC & DIFF IMMATURE GRANULOCYTE S [PRESENCE] IN BLOOD BY AUTOMATED COUNT 0.03 10*3/u L 0 - 0.1 11/11 Specimen Type: BLOOD Comment: Automated Differentia l Performed Ordering Provider: DEVORA DAVIS Report Released Date/Time: Nov 11, 2023 09:52 AM Reporting Lab: [facility] [address] Performing Lab: [facility] [address] [place] [facility] HEMOGLOBI N A1C HEMOGLOBIN A1C/HEMOGLO BIN.TOTAL IN BLOOD 4.7 4.0 - 6.0 11/11 Specimen Type: BLOOD Comment: Values obtained from A1C measurement s can vary. For typical A1C assays, a reported value of 7.0 could actually be between 6.7 and 7.3 if measured by a reference method. A reported value of 9.0 could actually be between 8.7 and 9.3. Ref: http://www. ngsp.org/[place] Pdata.asp Ordering Provider: DEVORA DAVIS Report Released Date/Time: Nov 11, 2023 09:52 AM Reporting Lab: [facility] [address] Performing Lab: [facility] [address] [place] [facility] PROTHROMB IN TIME/INR INR IN PLATELET POOR PLASMA BY COAGULATION ASSAY 1.0 0.8 - 1.1 11/11 Specimen Type: PLASMA No comment entered. Ordering Provider: DEVORA DAVIS Report Released Date/Time: Nov 11, 2023 09:52 AM Reporting Lab: [facility] [address] Performing Lab: [facility] [address] [place] [facility] PROTHROMB IN TIME/INR PROTHROMBIN TIME (PT) 11.5 s 9.4 - 12.5 11/11 Specimen Type: PLASMA No comment entered. Ordering Provider: DEVORA DAVIS Report Released Date/Time: Nov 11, 2023 09:52 AM Reporting Lab: [facility] [address] Performing Lab: [facility] [address] [place] [facility] POC CREATININ E CREATININE [MASS/VOLUM E] IN BLOOD 1.0 mg/dL 0.6 - 1.3 08/13 Specimen Type: BLOOD No comment entered. Ordering Provider: OLIVER SUMNER Report Released Date/Time: Aug 13, 2023 08:40 AM Reporting Lab: [facility] [address] Performing Lab: [facility] [address] [facility] CREATININ E(INCLUDE S EGFR) CREATININE [MASS/VOLUM E] IN SERUM OR PLASMA 1.0 mg/dL 0.7 - 1.2 08/13 Specimen Type: PLASMA No comment entered. Ordering Provider: GIL MARTINEZ Report Released Date/Time: Aug 30, 2022 08:28 AM Reporting Lab: [facility] [address] Performing Lab: [facility] [address] [facility] CREATININ E(INCLUDE S EGFR) GLOMERULAR FILTRATION RATE/1.73 SQ M.PREDICTED [VOLUME RATE/AREA] IN SERUM, PLASMA OR BLOOD BY CREATININE- BASED FORMULA (CKD-EPI 2020) >90 60 08/13 Specimen Type: PLASMA No comment entered. Ordering Provider: GIL MARTINEZ Report Released Date/Time: Aug 30, 2022 08:28 AM Reporting Lab: [facility] [address] Performing Lab: [facility] [address] [facility] Vital Signs Combined list of inpatient and outpatient Vital Signs from Department of Defense and Veterans Affairs, ranging from 12 months to all on record, depending upon the facility. Vital Sign Value Date Comments Source SYSTOLIC BLOOD PRESSURE 149 07/14/2024 10:37:18 [facility] DIASTOLIC BLOOD PRESSURE 100 07/14/2024 10:37:18 [facility] PULSE OXIMETRY 97 07/14/2024 10:37:18 [facility] WEIGHT 207.5 07/14/2024 10:37:18 [facility] BMI 33kg/m2 07/14/2024 10:37:18 [facility] PAIN 6 07/14/2024 10:37:18 [facility] TEMPERATURE 98.6 07/14/2024 10:37:18 [facility] PULSE 88 07/14/2024 10:37:18 [facility] RESPIRATION 12 07/14/2024 [facility]37[facility] SYSTOLIC BLO[facility] PRESSURE 187 11/24/2023 09:19:00 [facility] DIASTOLIC BLOOD PRESSURE 109 11/24/2023 09:19:00 [facility] PULSE OXIMETRY 100% 11/24/2023 09:19:00 [facility] [place] [facility] PAIN 6 11/24/2023 09:19:00 [facility] TEMPERATURE 99.8 11/24/2023 09:19:00 [facility] [facility] PULSE 72 11/24/2023 09:19:00 [facility] RESP[facility]ATION 16 11/24/2023 09:19[facility] SYSTOLIC BLOOD PRESSURE 166 11/19/2023 10:46:22 [facility] DIASTOL[facility] PRESSURE 88 11/19/2023 10:46:22 [facility] PULSE OXIMETRY 95% 11/19/2023 10:46:22 [facility] [place] [facility] TEMPERATURE 98.4 11/19/2023 10:46:22 [facility] [place] [facility] PULSE 70 11/19/2023 10:46:22 [facility] 18 11/19/2023 10:46:22 [facility] Encounters Combined list of: 1) Encounters from Department of Veterans Affairs facilities going back up to thelast 18 months. 2) Encounters from the Department of Defense facilities going back up to 280 months. Location Location Details Encounter Type Encounter Number Reason For Visit Attending Provider ADM Date DC Date Status Disposition Source [facility] [place]) OUTPATIENT [id number] [facility] WHITNEY WANG 11/21 Released w/o Limitations [facility] [place]) OUTPAT[facility] [id number] LEAH CHAN 01/04 Released w/o Limitations [facility] [place]( [facility] OUTPATIENT [id number] [phone] ELLIOT AGUIALR 08/01 Released w/o Limitations [facility] OUTPATIENT [id number] 08/05 Released w/o Limitations [facility] OUTPATIENT [id number] 12/14 Released w/o Limitations [facility]( [facility] M[facility]) OUTPATIENT [id number] head injury KEVIN GILLESPIE 12/15 Released with Work/Duty Limitations [facility](AMH M01A C Red) [facility]( [facility] [place]) OUTPATIENT [id number] Left Lower Back Pain TOSIN SOLAN A 03/14 Released w/o Limitations [facility] [place]) [facility]) OUTPATIENT [id number] self care MAGDALENA DRAKE 05/07 Released w/o Limitations [facility]) [facility]([place]) OUTPATIENT [id number] referra l to ortho JACKIE HDEZ 07/25 Released with Work/Duty Limitations [facility]([place] [facility] [place]) [facility]([place]) TELE CONSULT [id number] medicat ion refill JACKIE HDEZ 08/16 [facility] [place]) [facility]([place]) OUTPATIENT [id number] pha II MARCELA STEVENS 08/21 Released w/o Limitations [facility]) [facility]([place]) OUTPATIENT [id number] shoulde r JACKIE HDEZ 09/11 Released w/o Limitations [facility]) [facility]ear ing Conservat ion [facility]) OUTPATIENT [id number] KELLEY Cano 09/18 Released w/o Limitations [facility](He aring [facility] at[facility]) [facility](Orth opedics) OUTPATIENT [id number] SHOULDE R SPRAIN SUPERIO R GLENOID LABRUM LESION RIGHT OLAYINKAJAYDANIELLE J 10/01 Released with Work/Duty Limitations [facility](Or thopedi cs) [facility](Phys ical Therapy) OUTPATIENT [id number] slap tear ELOY PICHARDO 10/03 Released w/o Limitations [facility](Ph ysical Therapy ) [facility]([place]) OUTPATIENT [id number] f/u JACKIE Duenas 10/08 Released w/o Limitations [facility]) [facility](Phys ical Therapy) OUTPATIENT [id number] DEAN HARRY 10/19 Released w/o Limitations [facility](Ph ysical Therapy ) [facility]([place]) OUTPATIENT [id number] f/u JACKIE Senior 10/19 Released w/o Limitations [facility]) [facility](Phys ical Therapy) OUTPATIENT [id number] ELOY PICHARDO 10/26 Released w/o Limitations [facility](Ph ysical Therapy ) [facility]([place]) OUTPATIENT [id number] f/u shouldJACKIE Hudson 10/31 Released w/o Limitations [facility] [facility] [place]) [facility] [place]) OUTPATIENT [id number] f/u (r) shouldJACKIE Hudson 11/20 Released w/o Limitations [facility]) [facility](Phys ical Therapy) OUTPATIENT [id number] ELOY PICHARDO 11/27 Released w/o Limitations [facility](Ph ysical Therapy ) [facility]) OUTPATIENT [id number] JONATAN MCGOWAN 12/05 Released w/o Limitations [facility]) [facility] [place]) OUTPATIENT [id number] f/u JACKIE HDEZ 12/10 Released w/o Limitations [facility]) [facility](Orth opedics) OUTPATIENT [id number] 6 wk f/u on right shoulde r DANIELLE BHAGAT 12/18 Released w/o Limitations [facility](Or thopedi cs) [facility] [place]) OUTPATIENT [id number] f/u for shoulde r KETTY JACKIE R 12/21 Released w/o Limitations [facility]) [facility] [place]) OUTPATIENT [id number] right shoulde r pain f/u JACKIE HDEZ R 01/01 Released w/o Limitations [facility]) [facility] [place]) OUTPATIENT [id number] f/u pre sx shoulde r JACKIE HDEZ R 01/16 Released w/o Limitations [facility]) [facility](Phys ical Therapy) OUTPATIENT [id number] RIGHT SHOULDE R WINIFREDJACKELYNKALA ALEXANDER N 01/22 Released w/o Limitations [facility](Ph ysical Therapy ) [facility](Orth opedics) OUTPATIENT [id number] PREOP DOS [id number] DANIELLE BHAGAT 01/24 Released w/o Limitations [facility](Or thopedi cs) [facility]) OUTPATIENT [id number] Pre-op (TET, ultra sling) RUSSELL STEPHENS 01/25 Released w/o Limitations [facility](Br [facility]ong [facility]) [facility] ER, DIRECT TO [facility] [id number] CHANTAL PERES 01/31 RETURNED TO DUTY [facility](Orth opedics) OUTPATIENT [id number] POP DOS [id number] DANIELLE BHAGAT 02/15 Released w/o Limitations [facility](Or thopedi cs) [facility] [place]) OUTPATIENT [id number] RIGHT SHOULDE R CASANDRA JACKIE HDEZ R 02/27 Released w/o Limitations [facility]) [facility] [place]) OUTPATIENT [id number] (r) shoulde r RONNYANDRE SOTO Lucio 03/04 Released with Work/Duty Limitations [facility]) [facility](Phys ical Therapy) OUTPATIENT [id number] FARHAN REDMAN 03/05 Released w/o Limitations [facility](Ph ysical Therapy ) [facility](Phys ical Therapy) OUTPATIENT [id number] KHADIJAH MORRISON 03/12 Released w/o Limitations [facility](Ph ysical Therapy ) [facility](Orth opedics) OUTPATIENT [id number] dos jan 25 t DANIELLE Silverman 03/12 Released w/o Limitations [facility](Or thopedi cs) [facility](Phys ical Therapy) OUTPATIENT [id number] URSULA GONCALVES SR 03/15 Released w/o Limitations [facility](Ph ysical Therapy ) [facility](Cast Room) OUTPATIENT [id number] dos jan 25 chandu valdes/DANIELLE Mcgregor 03/15 Released with Work/Duty Limitations [facility](Ca [facility] Room) [facility](Phys ical Therapy) OUTPATIENT [id number] MERY SMITH 03/20 Released w/o Limitations [facility](Ph ysical Therapy ) [facility]) OUTPATIENT [id number] chronic mallet finger per YEVGENIY Mejía 03/25 Released w/o Limitations [facility]) [facility](Phys ical Therapy) OUTPATIENT [id number] KALA BELLE 04/01 Released w/o Limitations [facility](Ph ysical Therapy ) [facility]) OUTPATIENT [id number] f/u right hand YEVGENIY HUTTON 04/01 Released w/o Limitations [facility]) [facility](Phys ical Therapy) OUTPATIENT [id number] URSULA GONCALVES SR 04/05 Released w/o Limitations [facility](Ph ysical Therapy ) [facility]) TELE CONSULT [id number] patient complai nt AMARIS BHAGATMargaret Leblanc 04/05 [facility](Br [facility]ong [facility]) [facility](Phys ical Therapy) OUTPATIENT [id number] KHADIJAH MORRISON 04/08 Released w/o Limitations [facility](Ph ysical Therapy ) [facility](Occu pational Therapy) OUTPATIENT [id number] [facility] [place] boss excisio n/post- op rehab LAISHA KAM 04/24 Released w/o Limitations [facility](Oc cupatio nal Therapy ) [facility](Orth opedics) OUTPATIENT [id number] Walk in DANIELLE BHAGAT Deana 05/02 Released w/o Limitations [facility](Or thopedi cs) [facility]) OUTPATIENT [id number] f/u DOS 18 April 2011 YEVGENIY HUTTON 05/06 Released w/o Limitations [facility]) [facility](Orth opedics) OUTPATIENT [id number] F/U AFTER MRI UMBERTO HANKINS 05/07 Released w/o Limitations [facility](Or thopedi cs) [facility]) OUTPATIENT [id number] f/u right hand YEVGENIY HUTTON 05/07 Released w/o Limitations [facility]) [facility](Orth opedics) OUTPATIENT [id number] pain and serous drainag e at incisio n site of dorsal R hand YEVGENIY HUTTON 05/09 Released w/o Limitations [facility](Or thopedi cs) [facility](Raina gency Room) OUTPATIENT [id number] YULY NAJERA 05/10 Released w/o Limitations [facility](Em ergency Room) [facility](Occu pational Therapy) OUTPATIENT [id number] f/u SARY SUGGS 05/13 Released w/o Limitations [facility](Oc cupatio nal Therapy ) [facility]) OUTPATIENT [id number] f/u right hand dos YEVGENIY HUTTON 05/21 Released w/o Limitations [facility]) [facility](Occu pational Therapy) OUTPATIENT [id number] f/u HEAVENLY WILKINS 05/28 Released with Work/Duty Limitations [facility](Oc cupatio nal Therapy ) [facility](Occu pational Therapy) OUTPATIENT [id number] Splint fabricSETH Bhardwaj 05/30 Released w/o Limitations [facility](Oc cupatio nal Therapy ) [facility](Occu pational Therapy) OUTPATIENT [id number] rehab MIKAYLA ROSS 06/03 Released w/o Limitations [facility](Oc cupatio nal Therapy ) [facility] Bde 11/17) OUTPATIENT [id number] (r) hand, (12/18) ROBINSON SHOEMAKER 06/03 Released with Work/Duty Limitations [facility] 11/17) [facility]) OUTPATIENT [id number] f/u YEVGENIY HUTTON 07/05 Released w/o Limitations [facility]) [facility](Orth opedics) OUTPATIENT [id number] preop DOS 09 Aug 2011 VEE ADAMS 07/23 Released w/o Limitations [facility](Or thopedi cs) [facility]de 12/18) OUTPATIENT [id number] sleep problem s ROBERT GUPTA 10/15 Released w/o Limitations [facility] 2) [facility]) OUTPATIENT [id number] Pas entered the order - [id number] JENNIFER MANZANO 12/18 Released w/o Limitations [facility]) [facility] OUTPATIENT [id number] Annual POS STS H1 KIM TERRAZAS 12/19 Released w/o Limitations [facility] ) [facility]de 12/18) OUTPATIENT [id number] shoulde r and arm pain ROBERT GUPTA 12/23 Released with Work/Duty Limitations [facility]de 12/18) [facility] OUTPATIENT [id number] follow- up MELLO AMAYA 12/24 Released w/o Limitations [facility] ) [facility] OUTPATIENT [id number] H-2, needs profile asymmet didier loss, pos STS per SS M [id number] SEVERINO MONTANA 12/31 Released w/o Limitations [facility] ) [facility] Bde 12/18) OUTPATIENT [id number] profile ROBERT Bo 01/10 Released w/o Limitations [facility] Bde 12/18) [facility] Bde 12/18) OUTPATIENT [id number] anxiety ROBERT GUPTA 03/02 Released w/o Limitations [facility] Bde 2) [facility]) OUTPATIENT [id number] er f/u MAYRA DESIR 03/23 Released w/o Limitations [facility]) [facility] Bde 12/18) OUTPATIENT [id number] er f/u MAYRA DESIR 03/27 Released w/o Limitations [facility] Bde 12/18) Andrey Gonzalez GA(ER) OUTPATIENT [id number] GERARDO NEFF 05/27 Released w/o Limitations Andrey Gonzalez GA(ER) Jael [facility] OUTPATIENT [id number] RT SHOULDE R PAIN VEL SALCIDO Deana 08/10 Sick at Home/Quarter s Jael [facility]) Jael [facility] OUTPATIENT [id number] joint pain, localiz ed in the right shoulde r BRI BAILEY 08/11 Released w/o Limitations Jael [facility]) Jael [facility] OUTPATIENT [id number] MRI REVIEW BRI BAILEY 08/18 Released w/o Limitations Jael [facility] Jael [facility]) OUTPATIENT [id number] F/U PAIN IN THE R SHOULDE R, SURGERY CONSULT (LYNN ) MEIR QUINONES 08/27 Released w/o Limitations Jael [facility]) Jael [facility]) TELE CONSULT [id number] MRI results BRI BAILEY 09/15 Jael [facility]) Jael [facility]) OUTPATIENT [id number] S/P R LD [facility] 09/16 ANDREA CORTES 09/22 Released w/o Limitations Jael [facility] ) Jael [facility]) OUTPATIENT [id number] 1ST POP R SHOULDE R SX Aug [facility] 09/29 Released w/o Limitations Jael [facility]) Jael [facility]) OUTPATIENT [id number] 10:45AM F/U INCREAS ED SWELLIN G RIGHT UPPPER EXTREMI TY [facility] 10/13 Released w/o Limitations Jael [facility]) Jael [facility]) OUTPATIENT [id number] F/U S/P R Shld RTC Aug [facility] 10/14 Released w/o Limitations Jael [facility] ) Jael [facility] S[facility] Iam 125) OUTPATIENT [id number] allergi c reactio n SHREE MEREDITH 10/20 Released w/o Limitations Jael [facility] S[facility] Iam 125) Jael [facility]) OUTPATIENT [id number] 1045 R SHOULDE R F/U STILL HAVING ISSUES [facility] 10/22 Released w/o Limitations Jael [facility]) Jael [facility]) OUTPATIENT [id number] F/U right shoulde r [facility] 10/30 Released w/o Limitations Jael [facility] ) Jael [facility]) OUTPATIENT [id number] SARITA HCANDRA 11/02 Released w/o Limitations Jael [facility] ) KASH Gross([facility]) OUTPATIENT [id number] ACUP JEREMI HENSLEY 11/03 Released w/o Limitations [facility] Srivastava([facility] ) [facility] Gross([facility]) OUTPATIENT [id number] SARITA REYES 11/04 Released w/o Limitations [facility] ) [facility]) OUTPATIENT [id number] ACUP JEREMI HENSLEY 11/05 Released w/o Limitations [facility] ) [facility] Gross([facility]) OUTPATIENT [id number] AR AMI GONCALVES 11/18 Released w/o Limitations [facility] ) [facility] Gross([facility]) OUTPATIENT [id number] AMAAlayna CORTES ANDREA NICHOLSON 12/02 Released w/o Limitations [facility] ) [facility]) OUTPATIENT [id number] F/U R SHOULDMEIR ZHAO 12/08 Released w/o Limitations [facility]ast[facility]) [facility] Gross([facility] S[facility] Iam 125) OUTPATIENT [id number] Re-eval of R shouldSHREE Acevedo 12/15 Released with Work/Duty Limitations [facility]rivastava([facility] S[facility] Iam 125) [facility]) OUTPATIENT [id number] Notes Entered by: MARCELA GRIFFITH 18 Dec 2012 0737 ------- ------- ------- ------- -- MED BOARD PHYSICA L KATELYNMICK Adele 12/18 Released w/o Limitations [facility]) [facility] Physical Exams Cl) OUTPATIENT [id number] Notes Entered by: GAVIN SO 31 Dec 2012 0752 ------- ------- ------- ------- -- VAB case review MARIA T HARISHMICK S 12/31 Released with Work/Duty Limitations [facility] Srivastava([facility] Physica l Exams Cl) KASH Gross([address] 125) OUTPATIENT [id number] right shoulde r pain VIRI SHREE S 01/08 Released with Work/Duty Limitations [facility] 125) KASH Gross([address] 125) OUTPATIENT [id number] Med Re-Eval SHREE MEREDITH S 02/05 Released w/o Limitations Jael [facility] 125) [facility] Gross([facility] Case Managemen t) OUTPATIENT [id number] Case Managem ent ALICE TUCKER 02/15 Released w/o Limitations [facility]ASH Srivastava([facility] Case Managem ent) [facility] Gross([facility] S[facility] 125) TELE CONSULT [id number] Notes Entered by: TARA APARICIO 15 Feb 2013 1458 ------- ------- ------- ------- -- Medicat ion Renewal VIRI SHREE S 02/15 [facility]ASH Srivastava([facility] S01[facility] Iam 125) [facility] Gross([facility]) OUTPATIENT [id number] Notes Entered by: BRI CERRATO 22 Feb 2013 1407 ------- ------- ------- ------- -- Polypha rmacy Consult GRACIELA CERRATO 02/22 Released w/o Limitations Jael [facility]) Jael [facility] Case Managemen t) OUTPATIENT [id number] Care Coordin MARCOS Pozo 02/22 Released w/o Limitations Jael [facility] Muir([facility] Case Managem ent) [facility]) OUTPATIENT [id number] Notes Entered by: BRI CERRATO 26 Feb 2013 1044 ------- ------- ------- ------- -- followu p pain consult GRACIELA CERRATO 02/26 Released w/o Limitations [facility]) Jael [facility]) OUTPATIENT [id number] Notes Entered by: BRI CERRATO 08 Mar 2013 1136 ------- ------- ------- ------- -- pain followu GRACIELA Nam 03/08 Released w/o Limitations Jael [facility]) [facility]) OUTPATIENT [id number] MICK MEDINA 03/29 Released w/o Limitations [place] [facility]) [facility] 3D DENTAL SURFACE SCAN DIR [id number] Diagnos is: ICD-10- CM G47.33 Obstruc tive sleep apnea (adult) ([facility])
JOAQUINA RODRIGUEZ 04/17 [facility] [place] [facility] Outpatient Encounter [id number] 04/17 [facility] [place] [facility] Outpatient Encounter [id number] ERICALEKSANDER PARDOARMOND Leblanc 05/09 [place] [facility] [place] [facility] Outpatient Encounter [id number] 05/16 [place] [facility] [place] [facility] Outpatient Encounter [id number] 05/30 [place] [facility] [place] [facility] Outpatient Encounter [id number] DENA FALCON ISTINE 05/30 [place] [facility] [place] [facility] OCCLUSAL ORTHOTIC APPLIANCE [id number] Diagnos is: ICD-10- CM G47.33 Obstruc tive sleep apnea (adult) ([facility])
JOAQUINA RODRIGUEZ 06/02 [place] [facility] [place] [facility] Outpatient Encounter [id number] FAISAL MACHADO 06/17 [place] [facility] [place] [facility] PSYTX W PT 45 MINUTES [id number] [id number] Diagnos is: ICD-10- CM F43.23 Adjustm ent disorde r with mixed anxiety and depress ed mood
SKJULIA,AMY ET A 06/30 [facility] [place] [facility] PSYTX W PT 30 MINUTES [id number] [id number] Diagnos is: ICD-10- CM F43.23 Adjustm ent disorde r with mixed anxiety and depress ed mood
SKROCH,AMY ET A 07/14 [place] [facility] [place] [facility] Outpatient Encounter [id number] 07/23 [place] [facility] [place] [facility] Outpatient Encounter [id number] 08/13 [place] [facility] [place] [facility] OFFICE O/P EST HI 40-54 MIN [id number] [id number] Diagnos is: ICD-10- CM M25.512 Pain in left shoulde r
ANN MARIE SUMNERO B 08/13 [place] [facility] [place] [facility] Outpatient Encounter [id number] 08/15 [place] [facility] [place] [facility] OFFICE O/P EST LOW 20-29 MIN [id number] [id number] Diagnos is: ICD-10- CM Z85.528 Persona l history of other maligna nt neoplas m of kidney< br/> JERRY CARLIN 08/15 [place] [facility] [place] [facility] Outpatient Encounter [id number] TARA VASQUEZ 08/29 [place] [facility] OFF/OP CNSLTJ NEW/EST LOW 30 [id number] [id number] Diagnos is: ICD-10- CM M25.512 Pain in left shoulde r
KELSEY DAVIS S 09/30 [place] [facility] [place] [facility] Outpatient Encounter [id number] 10/02 [place] [facility] PRO PHONE CALL 5-10 MIN [id number] [id number] Diagnos is: ICD-10- CM I10 Essenti al (primar y) hyperte nsion<b r/> ROBY HUNT 10/07 [place] [facility] [place] [facility] Outpatient Encounter [id number] TARA VASQUEZ 10/14 [place] [facility] [place] [facility] Outpatient Encounter [id number] 10/15 [place] [facility] [place] [facility] Outpatient Encounter [id number] 10/25 [place] [facility] [facility] [place] [facility] Outpatient Encounter [id number] 10/30 [place] [facility] [place] [facility] Outpatient Encounter [id number] JANETH ÁLVAREZ 10/30 [facility] OFFICE O/P EST MOD 30-39 MIN [id number] [id number] Diagnos is: ICD-10- CM M25.512 Pain in left shoulde r
KELSEY DAVIS S 11/11 [facility] Outpatient Encounter [id number] 11/11 [facility] HC PRO PHONE CALL 11-20 MIN [id number] [id number] Diagnos is: ICD-10- CM Z71.9 Sticker Hand ing, unspeci fied
TAMIKA CHATMAN 11/13 [facility] ELECTROCAR DIOGRAM COMPLETE [id number] [id number] Diagnos is: ICD-10- CM Z13.6 Encount er for screeni ng for cardiov ascular disorde rs
WAQAS DARNELLL EY A 11/19 [facility] OFFICE O/P EST MOD 30 MIN [id number] [id number] Diagnos is: ICD-10- CM Z01.818 Encount er for other preproc edural examina tion
CELIO FARRIS 11/19 [facility] HC PRO PHONE CALL 11-20 MIN [id number] [id number] Diagnos is: ICD-10- CM Z71.9 Sticker Hand ing, unspeci fied
TAMIKA CHATMAN 11/19 [facility] Outpatient Encounter [id number] SHELLI PURVIS -SONIA 11/24 [facility] ELECTROCAR DIOGRAM COMPLETE [id number] [id number] Diagnos is: ICD-10- CM Z13.6 Encount er for screeni ng for cardiov ascular disorde rs
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< br/> JEREMIAH WEBSTER 11/24 [place] [place] [facility] Outpatient Encounter [id number] 11/24 [facility] [place] [facility] Outpatient Encounter [id number] JEREMIAH WEBSTER 11/24 [facility] [place] [facility] OFFICE O/P EST SF 10 MIN [id number] Diagnos is: ICD-10- CM 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< br/> JEREMIAH WEBSTER 11/24 [facility] [place] [facility] Outpatient Encounter [id number] KELSEY DAVIS S 11/24 [place] [place] [facility] ANES DX SHOULDER ARTHROSCOP Y [id number] MARLIN COBIAN B 11/24 [place] [place] [facility] Outpatient Encounter [id number] JEREMIAH WEBSTER 11/24 [place] [place] [facility] Outpatient Encounter [id number] 11/24 [place] [facility] [place] [facility] Outpatient Encounter [id number] 11/24 [place] [place] [facility] HC PRO PHONE CALL 11-20 MIN [id number] Diagnos is: ICD-10- CM Z71.9 Sticker Hand ing, unspeci fied
TAMIKA CHATMAN 11/27 [facility] THERAPEUTI C EXERCISES [id number] Diagnos is: ICD-10- CM M25.512 Pain in left shoulde r
TIMMY WARREN D 12/08 [facility] OFF/OP EST MAY X REQ PHY/QHP [id number] Diagnos is: ICD-10- CM Z47.89 Encount er for other orthope dic afterca re
JUANA DEGROOT R 12/08 [facility] Outpatient Encounter [id number] 12/08 [facility] THERAPEUTI C EXERCISES [id number] Diagnos is: ICD-10- CM M25.512 Pain in left shoulde r
TIMMY WARREN 12/19 [facility] Outpatient Encounter [id number] 12/22 [facility] Outpatient Encounter [id number] 12/26 [facility] Outpatient Encounter [id number] 01/07 [facility] POSTOP FOLLOW-UP VISIT [id number] Diagnos is: ICD-10- CM Z47.89 Encount er for other orthope dic afterca re
KELSEY DAVIS S 01/13 [facility] Outpatient Encounter [id number] OLIVER SUMNER [facility] Outpatient Encounter [id number] 01/22 [facility] [place] [facility] Outpatient Encounter [id number] 02/01 [facility] [place] [facility] Outpatient Encounter [id number] 02/02 [facility] [place] [facility] Outpatient Encounter [id number] 02/05 [facility] [place] [facility] Outpatient Encounter [id number] 02/05 [facility] [place] [facility] OFFICE O/P EST SF 10 MIN [id number] Diagnos is: ICD-10- CM Z47.89 Encount er for other orthope dic afterca re
KELSEY DAVIS CA S 02/23 [facility] [place] [facility] Outpatient Encounter [id number] 04/02 [facility] [place] [facility] Outpatient Encounter [id number] BEULAH HU 04/15 [facility] [place] [facility] Outpatient Encounter [id number] 05/24 [facility] HEARING AID EXAM BOTH EARS [id number] Diagnos is: ICD-10- CM H90.3 Sensori neural hearing loss, bilater al
JOSH PARISH AEL F 06/16 [facility]E [facility] Outpatient Encounter [id number] YADY CAMACHO 07/13 [facility] [place] [facility] OFFICE O/P EST MOD 30 MIN [id number] Diagnos is: ICD-10- CM K62.89 Other specifi ed disease s of anus and rectum< br/> LILIAN ALEXANDER 07/14 [facility] Outpatient Encounter [id number] Diagnos is: ICD-10- CM K62.89 Other specifi ed disease s of anus and rectum< br/> BRENTONKACEY Alayna 07/19 [facility] Outpatient Encounter [id number] 07/20 [facility] QNHP OL DIG ASSMT&MGMT 11-20 [id number] Diagnos is: ICD-10- CM F10.10 Alcohol abuse, uncompl icated< br/> NAIDANGIE Babcock 07/30 [facility] CONFORMITY EVALUATION [id number] Diagnos is: ICD-10- CM H90.3 Sensori neural hearing loss, bilater al
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 Procedure Procedure Type Code Date Perfomer Comments Sour e AUDIOMETRIC TESTING OF GROUPS 2008 DoD FITTING OF SPECTACLES, EXCEPT FOR APHAKIA; MONOFOCAL 2008 DoD PSYCHOTHERAPY, 30 MINUTES WITH PATIENT 2012 DoD PSYCHOTHERAPY, 30 MINUTES WITH PATIENT 2012 DoD PSYCHIATRIC DIAGNOSTIC EVALUATION 2012 DoD FITTING OF SPECTACLES, EXCEPT FOR APHAKIA; MONOFOCAL 2012 DoD MEDICATION THERAPY MANAGEMENT SERVICE(S) PROVIDED BY A PHARMACIST, INDIVIDUAL, [id number] WITH PATIENT, WITH ASSESSMENT AND INTERVENTION IF PROVIDED; INITIAL 15 MINUTES, ESTABLISHED PATIENT 2012 DoD MEDICATION THERAPY MANAGEMENT SERVICE(S) PROVIDED BY A PHARMACIST, INDIVIDUAL, [id number] WITH PATIENT, WITH ASSESSMENT AND INTERVENTION IF PROVIDED; INITIAL 15 MINUTES, ESTABLISHED PATIENT 2012 DoD MEDICATION THERAPY MANAGEMENT SERVICE(S) PROVIDED BY A PHARMACIST, INDIVIDUAL, [id number] WITH PATIENT, WITH ASSESSMENT AND INTERVENTION IF PROVIDED; INITIAL 15 MINUTES, NEW PATIENT 2012 [facility] CASE MANAGEMENT, EACH 15 MINUTES 2012 DoD PSYCHOTHERAPY, 45 MINUTES WITH PATIENT 2012 [facility] COORDINATED CARE FEE, MAINTENANCE RATE 2012 DoD PSYCHIATRIC DIAGNOSTIC EVALUATION 2012 [facility] PSYCHIATRIC DIAGNOSTIC EVALUATION 2012 [facility] SCREENING TEST OF VISUAL ACUITY, QUANTITATIVE, BILATERAL 2012 [facility] INJECTION, TRIAMCINOLONE ACETONIDE, NOT OTHERWISE SPECIFIED, 10 MG 2012 DoD PHYSICAL THERAPY RE-EVALUATION 2012 [facility] MANUAL THERAPY TECHNIQUES (EG, MOBILIZATION/ MANIPULATION, MANUAL LYMPHATIC DRAINAGE, MANUAL TRACTION), 1 OR MORE REGIONS, EACH 15 MINUTES 2012 [facility] APPLICATION OF A MODALITY TO 1 OR MORE AREAS; HOT OR COLD PACKS 2011 [facility] APPLICATION OF A MODALITY TO 1 OR MORE AREAS; HOT OR COLD PACKS 2011 [facility] APPLICATION OF A MODALITY TO 1 OR MORE AREAS; HOT OR COLD PACKS 2011 [facility] APPLICATION OF A MODALITY TO 1 OR MORE AREAS; HOT OR COLD PACKS 2011 [facility] PHYSICAL THERAPY RE-EVALUATION 2011 DoD POSTOPERATIVE FOLLOW-UP VISIT, NORMALLY INCLUDED IN THE SURGICAL PACKAGE, INDICATE THAT EVALUATION & MANAGEMENT SERVICE WAS PERFORMED DURING A POSTOPERATIVE PERIOD REASON RELATED ORIGINAL PROCEDURE 2011 [facility] THERAPEUTIC PROCEDURE, 1 OR MORE AREAS, EACH 15 MINUTES; THERAPEUTIC EXERCISES TO DEVELOP STRENGTH AND ENDURANCE, RANGE OF MOTION AND FLEXIBILITY 2011 DoD POSTOPERATIVE FOLLOW-UP VISIT, NORMALLY INCLUDED IN THE SURGICAL PACKAGE, INDICATE THAT EVALUATION & MANAGEMENT SERVICE WAS PERFORMED DURING A POSTOPERATIVE PERIOD REASON RELATED ORIGINAL PROCEDURE 2011 DoD POSTOPERATIVE FOLLOW-UP VISIT, NORMALLY INCLUDED IN THE SURGICAL PACKAGE, INDICATE THAT EVALUATION & MANAGEMENT SERVICE WAS PERFORMED DURING A POSTOPERATIVE PERIOD REASON RELATED ORIGINAL PROCEDURE 2011 DoD EXERCISE EQUIPMENT 2011 DoD UNLISTED SPECIAL SERVICE, PROCEDURE OR REPORT 2011 DoD ARTHROCENTESIS, ASPIRATION AND/OR INJECTION, MAJOR JOINT OR BURSA (EG, SHOULDER, HIP, KNEE, SUBACROMIAL BURSA); WITHOUT ULTRASOUND GUIDANCE 2011 DoD SLINGS 2011 DoD INJECTION, PROMETHAZINE HCL, UP TO 50 MG 2011 DoD INJECTION, METHYLPREDNISOLONE SODIUM SUCCINATE, UP TO 125 MG 2011 DoD INJECTION, FAMOTIDINE, 20 MG 2011 DoD INJECTION, METHYLPREDNISOLONE SODIUM SUCCINATE, UP TO 125 MG 2011 DoD SKIN TEST; TUBERCULOSIS, INTRADERMAL 2011 DoD SCREENING TEST OF VISUAL ACUITY, QUANTITATIVE, BILATERAL 2011 DoD ACOUSTIC IMMITTANCE TESTING, INCLUDES TYMPANOMETRY (IMPEDANCE TESTING), ACOUSTIC REFLEX THRESHOLD TESTING, AND ACOUSTIC REFLEX DECAY TESTING 2011 DoD AUDIOMETRIC TESTING OF GROUPS 2011 [facility] DETERMINATION OF REFRACTIVE STATE 2011 DoD POSTOPERATIVE FOLLOW-UP VISIT, NORMALLY INCLUDED IN THE SURGICAL PACKAGE, INDICATE THAT EVALUATION & MANAGEMENT SERVICE WAS PERFORMED DURING A POSTOPERATIVE PERIOD REASON RELATED ORIGINAL PROCEDURE 2010 DoD INJECTION, KETOROLAC TROMETHAMINE, PER 15 MG 2010 DoD APPLICATION OF A MODALITY TO 1 OR MORE AREAS; ELECTRICAL STIMULATION (MANUAL), EACH 15 MINUTES 2010 DoD APPLICATION OF SHORT ARM SPLINT (FOREARM TO HAND); STATIC 2010 DoD SELF-CARE/HOME MANAGMENT TRAIN (EG,ACT OF DAILY LIVING (ADL) &COMPENSAT TRAIN,MEAL PREPARATION,SAFETY PROCS,AND INSTRUCT IN USE OF ASST TECHNOLOGY DEV/ADPT EQUIP) DIR ONE-ON-ONE CONT,EA 15 MINUTES 2010 DoD POSTOPERATIVE FOLLOW-UP VISIT, NORMALLY INCLUDED IN THE SURGICAL PACKAGE, INDICATE THAT EVALUATION & MANAGEMENT SERVICE WAS PERFORMED DURING A POSTOPERATIVE PERIOD REASON RELATED ORIGINAL PROCEDURE 2010 DoD THERAPEUTIC PROCEDURE, 1 OR MORE AREAS, EACH 15 MINUTES; THERAPEUTIC EXERCISES TO DEVELOP STRENGTH AND ENDURANCE, RANGE OF MOTION AND FLEXIBILITY 2010 DoD INJECTION, MORPHINE SULFATE, UP TO 10 MG 2010 DoD THERAPEUTIC PROCEDURE, 1 OR MORE AREAS, EACH 15 MINUTES; THERAPEUTIC EXERCISES TO DEVELOP STRENGTH AND ENDURANCE, RANGE OF MOTION AND FLEXIBILITY 2010 DoD UNLISTED SPECIAL SERVICE, PROCEDURE OR REPORT 2010 [facility] APPLICATION OF A MODALITY TO 1 OR MORE AREAS; ELECTRICAL STIMULATION (UNATTENDED) 2010 [facility] APPLICATION OF A MODALITY TO 1 OR MORE AREAS; ELECTRICAL STIMULATION (MANUAL), EACH 15 MINUTES 2010 [facility] PHYSICAL THERAPY RE-EVALUATION 2010 [facility] INJECTION, TRIAMCINOLONE ACETONIDE, NOT OTHERWISE SPECIFIED, 10 MG 2010 [facility] APPLICATION OF A MODALITY TO 1 OR MORE AREAS; HOT OR COLD PACKS 2010 [facility] POSTOPERATIVE FOLLOW-UP VISIT, NORMALLY INCLUDED IN THE SURGICAL PACKAGE, INDICATE THAT EVALUATION & MANAGEMENT SERVICE WAS PERFORMED DURING A POSTOPERATIVE PERIOD REASON RELATED ORIGINAL PROCEDURE 2010 [facility] APPLICATION OF A MODALITY TO 1 OR MORE AREAS; HOT OR COLD PACKS 2010 [facility] THERAPEUTIC ACTIVITIES, DIRECT (ONE-ON-ONE) PATIENT CONTACT (USE OF DYNAMIC ACTIVITIES TO IMPROVE FUNCTIONAL PERFORMANCE), EACH 15 MINUTES 2010 [facility] THERAPEUTIC PROCEDURE, 1 OR MORE AREAS, EACH 15 MINUTES; THERAPEUTIC EXERCISES TO DEVELOP STRENGTH AND ENDURANCE, RANGE OF MOTION AND FLEXIBILITY 2010 DoD UNLISTED SPECIAL SERVICE, PROCEDURE OR REPORT 2010 [facility] SHOULDER ORTHOSIS, FIGURE OF EIGHT DESIGN ABDUCTION RESTRAINER, PREFABRICATED, [id number] 2010 [facility] INJECTION, KETOROLAC TROMETHAMINE, PER 15 MG 2010 [facility] SKIN TEST; TUBERCULOSIS, INTRADERMAL 2010 [facility] THERAPEUTIC PROCEDURE, 1 OR MORE AREAS, EACH 15 MINUTES; THERAPEUTIC EXERCISES TO DEVELOP STRENGTH AND ENDURANCE, RANGE OF MOTION AND FLEXIBILITY 2010 DoD THERAPEUTIC PROCEDURE, 1 OR MORE AREAS, EACH 15 MINUTES; THERAPEUTIC EXERCISES TO DEVELOP STRENGTH AND ENDURANCE, RANGE OF MOTION AND FLEXIBILITY 2009 DoD THERAPEUTIC PROCEDURE, 1 OR MORE AREAS, EACH 15 MINUTES; THERAPEUTIC EXERCISES TO DEVELOP STRENGTH AND ENDURANCE, RANGE OF MOTION AND FLEXIBILITY 2009 [facility] THERAPEUTIC PROCEDURE, 1 OR MORE AREAS, EACH 15 MINUTES; THERAPEUTIC EXERCISES TO DEVELOP STRENGTH AND ENDURANCE, RANGE OF MOTION AND FLEXIBILITY 2009 [facility] PHYSICAL THERAPY EVALUATION 2009 [facility] ARTHROCENTESIS, ASPIRATION AND/OR INJECTION, MAJOR JOINT OR BURSA (EG, SHOULDER, HIP, KNEE, SUBACROMIAL BURSA); WITHOUT ULTRASOUND GUIDANCE 2009 [facility] AUDIOMETRIC TESTING OF GROUPS 2009 [facility] HEPATITIS B VACCINE (HEPB), ADULT DOSAGE, 3 DOSE SCHEDULE, FOR INTRAMUSCULAR USE 2009 [facility] SCREENING TEST OF VISUAL ACUITY, QUANTITATIVE, BILATERAL 2009 [facility] THERAPEUTIC, PROPHYLACTIC, OR DIAGNOSTIC INJECTION (SPECIFY SUBSTANCE OR DRUG); SUBCUTANEOUS OR INTRAMUSCULAR 2009 [facility] UNLISTED THERAPEUTIC, PROPHYLACTIC, OR DIAGNOSTIC INTRAVENOUS OR INTRA-ARTERIAL INJECTION OR INFUSION 2009 [facility] Physical Therapy: ___ Se ion Segments, 15 Minutes Each Physical Therapy: ___ Session Segments, 15 Minutes Each 07915 2009 DEAN HARRY [facility] Physical Therapy: ___ Se ion Segments, 15 Minutes Each Physical Therapy: ___ Session Segments, 15 Minutes Each 04511 2009 ELOY PICHARDO [facility] Physical Therapy Service Evaluation Physical Therapy Service Evaluation 97691 2009 ELOY PICHARDO [facility] Arthrocentesis Aspiration Of Shoulder Joint Arthrocentesis Aspiration Of Shoulder Joint 08383 2009 DANIELLE BHAGAT The risk and benefits of a joint injection were explained to the patient and he elected to proceed. Using Betadine the skin was cleansed. The joint was injected using 40 mg of Kenalog 4 mL of lidocaine and 4 mL of Marcaine. The patient tolerated procedure well. [facility] Audiometry Group Testing Audiometry Group Testing 39211 2009 KELLEY SEBASTIAN [facility] Parenteral Fluids IV Infusion Parenteral Fluids IV Infusion 33947 2009 KEVIN GILLESPIE [facility] Intravenous Catheter Placement Intravenous Catheter Placement 82105 2009 KEVIN GILLESPIE [facility] Physician Supervised Injection Intramuscular Physician Supervised Injection Intramuscular 82028 2009 KEVIN GILLESPIE [facility] Physician Supervised Injection Intravenous Physician Supervised Injection Intravenous 00665 2009 KEVIN GILLESPIE [facility] Audiometry Group Testing Audiometry Group Testing 81473 2008 LEAH CHAN [facility] Determination Of Refractive State Determination Of Refractive State 10367 2008 IGLESIA SEAY [facility] Spectacles Services Fitting Monofocal Except For Aphakia Spectacles Services Fitting Monofocal Except For Aphakia 86704 2008 IGLESIA SEAY [facility] Spectacles Services Fitting Monofocal Except For Aphakia Spectacles Services Fitting Monofocal Except For Aphakia 61597 2012 MICK ZEPEDA [facility] Determination Of Refractive State Determination Of Refractive State 87482 2012 MICK ZEPEDA [facility] Ophthalmological Prior Patient Start Comprehensive Care Ophthalmological Prior Patient Start Comprehensive Care 72479 2012 MICK ZEPEDA [facility] Psychotherapy Individual Approximately 30 Minutes 2012 AMI MOONEY [facility] Psychotherapy Individual Approximately 30 Minutes 2012 AMI MOONEY [facility] Medication Management By Pharmacist Initial 15 Minutes Established Patient Medication Management By Pharmacist Initial 15 Minutes Established Patient [id number] 2012 GRACIELA CERRATO [facility] Case Management, each 15 minutes 2012 ALICE TUCKER [facility] Coordinated care fee, maintenance rate 2012 ALICE TUCKER [facility] Psychiatric Diagnostic Evaluation Psychiatric Diagnostic Evaluation 00262 2012 AMI MOONEY [facility] Medication Management By Pharmacist Initial 15 Minutes Established Patient Medication Management By Pharmacist Initial 15 Minutes Established Patient [id number] 2012 GRACIELA CERRATO [facility] Medication Management By Pharmacist Initial 15 Minutes New Patient Medication Management By Pharmacist Initial 15 Minutes New Patient [id number] 2012 GRACIELA CERRATO [facility] Case Management, each 15 minutes 2012 MARCOS RIDDLE [facility] Coordinated care fee, maintenance rate 2012 MARCOS RIDDLE [facility] Clinical Social Work Individual Outpatient Counseling 45 Minutes 2012 AUDREY VASQUEZ [facility] Psychiatric Diagnostic Evaluation Review of Records and Reports Psychiatric Diagnostic Evaluation Review of Records and Reports 61632 2012 KENY MASON [facility] Health And Behav A e mt Each 15 Min Initial A e ment Health And Behav Assessmt Each 15 Min Initial Assessment 91601 2012 KENY MASON [facility] Psychiatric Diagnostic Evaluation Comprehensive Examination Psychiatric Diagnostic Evaluation Comprehensive Examination 19871 2012 KENY MASON [facility] Psychometric Neurobehavioral Status Exam 2012 KENY MASON [facility] Extensive Color Vision Testing Extensive Color Vision Testing 87078 2012 MICK ZEPEDA [facility] Screening Test Of Visual Acuity, Quantitative, Bilateral Screening Test Of Visual Acuity, Quantitative, Bilateral 44579 2012 MICK ZEPEDA [facility] Physical Therapy Service Re-Evaluation Physical Therapy Service Re-Evaluation 85060 2012 AGUSTINESANDREA LYN [facility] Modalities Heat Hot Packs Modalities Heat Hot Packs 75056 2012 AMI GONCALVES Physical Therapy Mobilization Joint Physical Therapy Mobilization Joint 90935 2012 AMI GONCALVES Physical Therapy Neuromuscular Re-education Physical Therapy Neuromuscular Re-education 14059 2012 AMI GONCALVES Physical Therapy: ___ Se ion Segments, 15 Minutes Each Physical Therapy: ___ Session Segments, 15 Minutes Each 69531 2012 AMI GONCALVES Modalities Vasopneumatic Device Modalities Vasopneumatic Device 09481 2011 JEREMI HENSLEY Acupuncture One Or More Sanders With Stimulation Initial 15 Min Acupuncture One Or More Sanders With Stimulation Initial 15 Min 28347 2011 JEREMI HENSLEY Physical Therapy Ma maribel Physical Therapy Massage 15603 2011 JEREMI HENSLEY Modalities Heat Hot Packs Modalities Heat Hot Packs 96776 2011 JEREMI HENSLEY Physical Medicine - Group Physical Therapy Se ion Physical Medicine - Group Physical Therapy Session 13718 2011 SARITA LEE Physical Therapy: ___ Se ion Segments, 15 Minutes Each Physical Therapy: ___ Session Segments, 15 Minutes Each 15452 2011 SARITA LEE Physical Therapy Mobilization Joint Physical Therapy Mobilization Joint 62457 2011 SARITA LEE Modalities Vasopneumatic Device Modalities Vasopneumatic Device 60673 2011 JEREMI HENSLEY Modalities Heat Hot Packs Modalities Heat Hot Packs 07214 2011 JEREMI HENSLEY Physical Therapy Ma age Physical Therapy Massage 04502 2011 JEREMI HENSLEY Acupuncture One Or More Sanders With Stimulation Initial 15 Min Acupuncture One Or More Sanders With Stimulation Initial 15 Min 94858 2011 JEREMI HENSLEY Physical Therapy Mobilization Joint Physical Therapy Mobilization Joint 70626 2011 SARITA LEE Physical Therapy: ___ Se ion Segments, 15 Minutes Each Physical Therapy: ___ Session Segments, 15 Minutes Each 44866 2011 SARITA LEE Physical Therapy Service Re-Evaluation Physical Therapy Service Re-Evaluation 32237 2011 ANDREA CORTES DoD A isted Exercises For ROM Assisted Exercises For ROM [address]07 [address] [facility] Physical Therapy Service Re-Evaluation Physical Therapy Service Re-Evaluation 58555 [facility] equipment 2011 ANDREA CORTESS shoulder pulleys [facility] A isted Exercises For ROM Assisted Exercises For ROM 04213 2011 [facility] Physical Therapy Service Evaluation Physical Therapy Service Evaluation 70197 2011 [facility] Acoustic Immittance Test Acoustic Immittance Test 95827 2011 SEVERINO [place]NA [facility] Comprehensive Audiometry 37285 2011 SEVERINO [place] Audiometry Group Testing Audiometry Group Testing 23463 2011 MELLO AMAYA Audiometry Group Testing Audiometry Group Testing 76479 2011 KIM TERRAZAS Ophthalmological New Patient Start Comprehensive Care Ophthalmological New Patient Start Comprehensive Care 43941 2011 JENNIFER MANZANO Determination Of Refractive State Determination Of Refractive State 07764 2011 JENNIFER MANZANO Spectacles Services Fitting Monofocal Except For Aphakia Spectacles Services Fitting Monofocal Except For Aphakia 12310 2011 JENNIFER MANZANO Modalities Electrical Stimulation Modalities Electrical Stimulation 62534 2010 MIKAYLA ROSS Modalities Heat Hot Packs Modalities Heat Hot Packs 64767 2010 MIKAYLA ROSS Physical Therapy Ma age Physical Therapy Massage 86554 2010 MIKAYLA ROSS A isted Exercises For ROM Assisted Exercises For ROM 45485 2010 MIKAYLA ROSS Splinting Wrist Static Splinting Wrist Static 89677 2010 SETH PLATT x 2 splints 1 Otoform compression splint Right hand 10 minutes 1 dorsal resting hand splint Right hand 28 minutes [facility] Patient Training And Self-Care Skills Patient Training And Self-Care Skills 03024 2010 HEAVENLY WILKNIS Occupational Therapy Re-Evaluation Occupational Therapy Re-Evaluation 37389 2010 HEAVENLY WILKINS [facility] A isted Exercises For ROM Assisted Exercises For ROM 92555 2010 REESARY Valdes [facility] Occupational Therapy Re-Evaluation Occupational Therapy Re-Evaluation 40741 2010 REELucio SARY L [facility] A isted Exercises For ROM Assisted Exercises For ROM 99616 2010 LAISHA KAM [facility] Patient Training And Self-Care Skills Patient Training And Self-Care Skills 41486 2010 LAISHA KAM [facility] Occupational Therapy Evaluation Occupational Therapy Evaluation 11047 2010 LAISHA KAM [facility] Modalities Electrical Stimulation Unattended Modalities Electrical Stimulation Unattended 38776 2010 KHADIJAH MORRISON [facility] Physical Therapy Mobilization Joint Physical Therapy Mobilization Joint 05041 2010 KHADIJAH MORRISON [facility] Physical Therapy: ___ Se ion Segments, 15 Minutes Each Physical Therapy: ___ Session Segments, 15 Minutes Each 35821 2010 KHADIJAH MORRISON [facility] Modalities Electrical Stimulation Device Placement Modalities Electrical Stimulation Device Placement 13581 2010 URSULA GONCALVES [facility] Physical Therapy: ___ Se ion Segments, 15 Minutes Each Physical Therapy: ___ Session Segments, 15 Minutes Each 02125 2010 URSULA GONCALVES [facility] Physical Therapy Neuromuscular Re-education Physical Therapy Neuromuscular Re-education 90236 2010 URSULA GONCALVES [facility] PT A e ment Kinetic Training PT Assessment Kinetic Training 01130 2010 URSULA GONCALVES [facility] PT A e ment Kinetic Training PT Assessment Kinetic Training 16705 2010 KALA BELLE [facility] Physical Therapy Service Re-Evaluation Physical Therapy Service Re-Evaluation 06803 2010 KALA BELLE [facility] Modalities Cryotherapy Cold Packs Modalities Cryotherapy Cold Packs 40380 2010 MERY SMITH [facility] Physical Therapy Neuromuscular Re-education Physical Therapy Neuromuscular Re-education 63982 2010 MERY SMITH [facility] PT A e ment Kinetic Training Each Additional 15 Minutes PT Assessment Kinetic Training Each Additional 15 Minutes 63583 2010 MERY SMITH [facility] Physical Therapy: ___ Se ion Segments, 15 Minutes Each Physical Therapy: ___ Session Segments, 15 Minutes Each 19267 2010 MERY SMITH [facility] Modalities Cryotherapy Cold Packs Modalities Cryotherapy Cold Packs 53960 2010 URSULA GONCALVES [facility] Hospital Modalities Electrical Stimulation Device Placement Modalities Electrical Stimulation Device Placement 21879 2010 URSULA GONCALVES [facility] Physical Therapy: ___ Se ion Segments, 15 Minutes Each Physical Therapy: ___ Session Segments, 15 Minutes Each [id number] 2010 URSULA GONCALVES [facility] PT A e ment Kinetic Training PT Assessment Kinetic Training 12945 [facility]: ___ Se ion Segments, 15 Minutes Each Physical Therapy: ___ Session Segments, 15 Minutes Each [id number] 2010 [facility] Therapy: ___ Se ion Segments, 15 Minutes Each Physical Therapy: ___ Session Segments, 15 Minutes Each [id number] 2010 FARHAN REDMAN [facility] Physical Therapy Service Evaluation Physical Therapy Service Evaluation [id number] 2010 FARHAN REDMAN [facility] Shoulder orthosis, acromio/clavicular (canvas and webbing type), prefabricated, [id number] 2010 RUSSELL STEPHENS [facility] Surgical stockings thigh length, each 2010 RUSSELL STEPHENS [facility] Patient education, not otherwise cla ified, non-physician provider, group, per se ion 2010 KALA NICOLE [facility] Injection, ketorolac tromethamine, per 15 mg 2010 JACKIE HDEZ 60 mg im x 1 now. Jimenez Physician Supervised Injection Intramuscular Physician Supervised Injection Intramuscular 33088 2010 JACKIE HDEZ Influenza Split Virus Vaccine 0.5mL Dosage Intramuscular 2010 JONATAN TUTTLE Skin Test Anergy Tuberculin Intradermal Skin Test Anergy Tuberculin Intradermal 75093 2010 JONATAN TUTTLE Immunization Administration By Injection, One Vaccine Immunization Administration By Injection, One Vaccine 69526 2010 JONATAN TUTTLE Physical Therapy: ___ Se ion Segments, 15 Minutes Each Physical Therapy: ___ Session Segments, 15 Minutes Each [id number] 2010 MARINO ELOY Adele [facility] Physical Therapy Service Re-Evaluation Physical Therapy Service Re-Evaluation [id number] 2010 ELOY PICHARDO [facility] Physical Therapy: ___ Se ion Segments, 15 Minutes Each Physical Therapy: ___ Session Segments, 15 Minutes Each [id number] 2009 MARNIO ELOY Angulo [facility] Physical Therapy Service Re-Evaluation Physical Therapy Service Re-Evaluation 79998 2009 MARINO, ELOY Adele [facility] Physical Medicine - Group Physical Therapy Se ion Physical Medicine - Group Physical Therapy Session [id number] 2009 DEAN HARRY [facility] Physical Therapy: ___ Se ion Segments, 15 Minutes Each Physical Therapy: ___ Session Segments, 15 Minutes Each [id number] 2009 DEAN HARRY [facility] Left shoulder arthroscopy, subacromial bursectomy, open subpectoral biceps tenodesis ANES DX SHOULDER ARTHROSCOPY 85418 2023 DEVORA DAVIS [facility] Social History Combined list of available smoking, tobacco, and other social history from 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 Social History Type Response Date Comment Sourc e Tobacco smoking status NHIS VA-TOBACCO NEVER USED 07/14/2024 JEISON Conway [facility] History of tobacco use VA-TOBACCO NEVER USED 06/30/2023 [facility] History of tobacco use IA-TOBACCO NEVER USED 06/28/2022 [facility] History of tobacco use IA-TOBACCO NEVER USED 08/28/2021 [facility] History of tobacco use VA-TOBACCO NEVER USED 11/01/2020 [facility] History of tobacco use VA-TOBACCO NEVER USED 01/18/2020 [facility] History of tobacco use VA-TOBACCO NEVER USED 12/21/2018 [facility] History of tobacco use 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 [facility] Plan of Care List of future care activities from Department of 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 Additional future care activities may be listed in the Assessment and Plan section. Date/Time Care Activity Care Activity Detail Facili ty 08/26/2024 AMBULATORY - NONE [facility] - NONE [facility] 08/26/2024 AMBULATORY - MEDICINE AMBULATORY - MEDICI [facility] 08/15/2024 Imaging - General Ra diology Order CHEST 2 VIEWS PA AND LAT [facility]
--- OUTSIDE RECORDS SUMMARY | 2024-08-19 09:50 | XMS_ITS | Clinical Summary ---
Author Organization [facility] Address [place], [place] [address] Care Team Providers Care Accounts Payable Payroll Coordinator Name Role Phone Clinic, No Pcp Or Primary Care Provider Unavaila ble Allergies Active Allergy Reactions Criticality Noted Date Comments Amlodipine Edema 03/22/2020 Cefazolin *Unknown 2024 Shellfish Containing Products Anaphylaxis High 02/28 [place] Anaphylaxis High 04/18/2014 Medications Medication Sig Dispensed Refills Start Date End Date Status losartan (COZAAR) 50 mg tablet Take 50 mg by mouth. 08/13/2023 Acti ve triamcinolone 0.1% (KENALOG IN ORABASE) 0.1 % paste PLEASE SEE ATTACHED FOR DETAILED DIRECTIONS 11/07/2023 Active albuterol HFA (PRO-AIR; VENTOLIN; PROVENTIL) 90 mcg/actuation inhaler INHALE 2 PUFFS EVERY 4 TO 6 HOURS NEEDED FOR SHORTNESS OF BREATH OR WHEEZING 10/01/2023 Active Encounters Date Type Department Care Team Description 2024 9:30 AM CDT Office Visit [facility] [id number] [place] [phone] Alycia Valentine MD Ear Problem (Tinnitus b/l, left ear hearing loss. No HAs. ) 2024 9:00 AM CDT Office Visit [facility] [id number] [place] [phone] Min Flores AuD Hearing Problem 2024 Orders Only [facility] [id number] [place] [phone] Alycia Valentine MD <No scans attached> 2024 Travel from Last 3 Months Social History Tobacco Use Types Packs/Day Years Used Date Smoking Tobacco: Never Assessed Sex and Gender Information Value Date Recorded Sex Assigned at Not on file Gender Identity Not on file Sexual Orientation Not on file Plan of Treatment Health Maintenance Due Date Last Done Comments Tdap 1984 Depression screening for age 12+ 1985 HIV for age 15-65 1988 BMI (ht and wt on same day) for age 18+ 1991 Hepatitis C screening for ag e 18-79 1991 Tetanus booster 1993 Colonoscopy through age 75 2018 Lipids for age 45-75 2018 Zoster (shingles) series for age 50+ (1 of 2) 2023 COVID-19 vaccine series (2023- season) 2024 12/10/2021, 02/16/2021, 01/18/2021 Influenza for age 50-64 07/18/2024 Pneumococcal series for age 6-64 Aged Out No longer eligible b ased on patient's age to complete this topic Care Teams Accounts Payable Payroll Coordinator Relationship Specialty Start Date End Date Clinic, No Pcp Or . PCP - General 02/09/24
== END 2024-08-19 09:45 | disposition home or self-care (01) ==
LOC: FRMREF 09:48
PROVIDERS: PCP Physician Assistant Medical; Visit Provider Physician Assistant Medical
DX: R19.7 Diarrhea, unspecified (principal)
CPT/HCPCS: 80053

== ENCOUNTER 2025-09-13 12:48 | Emergency (ER) | payer OTHER, SELFPAY ==
[2025-09-13 13:14] VITALS: BP 156/119; PULSE 92; RESP 22; O2SAT 97
[2025-09-13 13:18] LABS: Ionized Calcium* 1.07 mmol/L (1.11-1.30)
[2025-09-13 13:23] LABS: Albumin* 4.8 g/dL (3.3-5.0); Chloride* 103 mmol/L (96-114)
[2025-09-13 13:24] LABS: Potassium* 3.8 mmol/L (3.6-5.1); Sodium* 136 mmol/L (135-149)
[2025-09-13 13:26] LABS: Alanine Aminotransferase* 36 U/L (4-50); Anion Gap 16 mEq/L (7-15); Aspartate Amino Transferase* 52 U/L (12-35); Blood Urea Nitrogen* 9 mg/dL (7-30); Carbon Dioxide* 17 mmol/L (20-32); Creatinine* 0.8 mg/dL (0.5-1.5); Estimated Glomerular Filt Rate 106 ml/min
[2025-09-13 13:27] LABS: Alkaline Phosphatase* 54 U/L (40-150); Bilirubin Total* 1.8 mg/dL (0.1-1.5); Calcium* 8.9 mg/dL (8.4-10.6); Glucose* 136 mg/dL (60-115); Hematocrit* 40.6 % (37.0-53.0); Hemoglobin* 15.0 gm/dL (13.5-17.5); Immature Granulocytes Abs Auto 0.03 K/uL (0.00-0.30); Immature Granulocytes Pct Auto 0.4 %; Mean Corpuscular HGB Conc 37 gm/dL (32-36); Mean Corpuscular Hemoglobin 35 pg (26-34); Mean Corpuscular Volume 94 fL (80-100); RDW Coefficient of Variation % 11.5 % (11.5-15.5); Red Blood Count* 4.34 m/uL (4.30-5.90); Total Protein* 7.7 g/dL (6.0-8.3); White Blood Count* 7.96 K/uL (4.50-11.00)
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
[2025-09-13 13:43] VITALS: BP 135/91; PULSE 88; RESP 12; O2SAT 98
[2025-09-13 14:03] LABS: Lymphocytes Absolute Auto 3.70 K/uL (0.90-2.90); Slide Review Reflex No
--- OUTSIDE RECORDS SUMMARY | 2025-09-13 14:10 | XMS_ITS | Clinical Summary ---
Author Organization [facility] Address [address] [place] [id number] Care Team Providers Care Wireless Watcher Name Role Phone Clinic, No Pcp Or Primary Care Provider Unavaila ble Allergies Active Allergy Reactions Criticality Noted Date Comments Amlodipine Edema 03/22/2020 Cefazolin *Unknown 2024 Shellfish Containing Products Anaphylaxis High 02/28 [place] Anaphylaxis High 04/18/2014 Medications losartan (COZAAR) 50 mg tablet Take 50 mg by mouth. 3 Active triamcinolone 0.1% (KENALOG IN ORABASE) 0.1 % paste PLEASE SEE ATTACHED FOR DETAILED DIRECTIONS 3 Active albuterol HFA (PRO-AIR; VENTOLIN; PROVENTIL) 90 mcg/actuation inhaler INHALE 2 PUFFS EVERY 4 TO 6 HOURS NEEDED FOR SHORTNESS OF BREATH OR WHEEZING 3 Active Social History Tobacco Use Types Packs/Day Years Used Date Smoking Tobacco: Never Assessed Sex and Gender Information Value Date Recorded Sex Assigned at Not on file Legal Sex Male 3:57 PM CDT Gender Identity Not on file Sexual Orientation Not on file Plan of Treatment Health Maintenance Due Date Last Done Comments Tetanus booster 1984 Depression screening for age 12+ 1985 HIV for age 15-65 1988 BMI (ht and wt on same day) for age 18+ 1991 Hepatitis C screening for age 18-79 1991 Hepatitis B series for 19+ (1 of 3 - 19+ 3-dose series ) 1992 Colonoscopy through age 75 2018 Lipids for age 45-75 2018 Pneumococcal series for age 50+ (1 of 1 - PCV) 023 Zoster (shingles) series for age 50+ (1 of 2) 05/24/20 23 Influenza Vaccine (#1) 2025 RSV vaccine for adults or pr egnancy (1 - 1-dose 75+ series) 2048 Insurance [facility] Care Teams Wireless Watcher Relationship Specialty Start Date End Date Clinic, No Pcp Or . PCP - General 02/09/24
[2025-09-13 17:17] LABS: PTH Intact* 38.5 pg/mL (14.2-75.2)
== END 2025-09-13 14:52 | disposition home or self-care (01) ==
PROVIDERS: Emergency Provider Student in an Organized Health Care Education/Training Program; PCP Physician Assistant Medical
DX: H81.392 Other peripheral vertigo, left ear (principal)
CPT/HCPCS: 36415; 80053; 82330; 83735; 83970; 84100; 85025; 96374; 99284; J2060

== ENCOUNTER 2025-09-19 07:41 | Outpatient (CLI) | payer OTHER, SELFPAY | END 2025-09-19 07:42 | disposition home or self-care (01) | LOC: AMB 09-23 12:25 | PROVIDERS: PCP Physician Assistant Medical; Visit Provider Family Medicine | DX: R10.9 Unspecified abdominal pain (principal); R22.0 Localized swelling, mass and lump, head; H53.8 Other visual disturbances | CPT/HCPCS: A0425; A0427 ==

== ENCOUNTER 2025-09-19 08:08 | Emergency (ER) | payer OTHER, SELFPAY ==
--- OUTSIDE RECORDS SUMMARY | 2013-02-08 04:51 | XMS_ITS | Continuity of Care Document ---
Author Organization [facility] Address [address] [address] [place] [address] Phone Care Team Providers Care Financial Services Associate Name Role Phone Deana Saucedo MD Unavailable Unavailable Allergies, Adverse Reactions, Alerts Substance Reaction Status Criticality shellfish derived anaphylaxis 2009 Active No Inf ormation CEFAZOLIN SODIUM anaphylaxis Active No In formation Medications Medication Instructions Dosage Effective Dates (start - stop) Status Comments cetirizine 10 mg tablet take 1 tablet (10MG) by oral route every day May take twice daily if needed (off label dosing) 10 MG - Active Procedures Procedure Date Offic/outpt E m Estab Min Perq W/allerg Extract-spe Office Consult New/Established Pt-Mod To High Advance Directives Directive Yes / No Effective Date File Name No Information Encounters Encounter Description Practice Location Reason(s) For Visit Diagnoses Date Provider Providers Copied on Encounter Social IQ (Social Influence Quotient) [facility], [address] [address], [place], [place], [id number] , [place] tel:[phone] [facility] No Information 3 Sheryl Bui. [address], [place], [id number] , [place]. tel: [phone] Social IQ (Social Influence Quotient) [facility], [address] [address], [place], [place], [id number] , tel: [phone] [facility] No Information 3 Sheryl Deana Bui. [address], [place], [id number] , [place]. tel: [phone] Offic/outpt E m Estab Min Man [facility], [address] [address], [place], [place], [id number] , tel: [phone] [facility] allergies (chief complaint) Other Anaphylactic Shock 3 Sheryl J Hao. [address], [place], [id number] , [place]. tel: [phone] Jael Phillips/In ddec [address], [place], [address]. tel:[phone] Office Consult New/Establis hed Pt-Mod To High [facility], [address] [address], [place], [place], [id number] , tel: [phone] [facility] AnaphylaxisShellfis h allergyAllergy to cephalosporinCephal osporin group causing adverse effect in therDermatographism 3 Sherylyany Bui. [address], [place], [id number] , [place]. tel: [phone] Jael Phillips/In [facility] [address], [place], [address]. tel:[phone] erring Provider: Jael Phillips/ ddec [address], [address], [place], [address]. tel:[phone] Family History Family Member Type Diagnosis Age At Onset No Information Payers Payer name Insurance type Covered libertarian ID Authoriza tion(s) No Information Social History Type Description Quantity Date Captured Comments Sex Male Smoking Status No Information Chief Complaint And Reason For Visit No Information Reason For Referral Reason For Referral No Information History Of Present Illness Encounter Date Complaint History Of Prese nt Illness No Information Functional Status Date Functional Assessmen t No Information Instructions Date Instruction Additional Infor mation No Information Assessments Type Assessment Date No Information Patient Care Teams Name Effective Dates (start - stop) Status Members No Information
--- OUTSIDE RECORDS SUMMARY | 2025-09-18 15:30 | XMS_ITS ---
Author Organization [facility] - Primary Address [address] [place] [phone] Care Team Providers Care Application Internship Name Role Phone [place] [facility], x Primary Care Provider Unavailabl e Migration, Provider Unavailable Unavailable Allergies Allergen (clinical drug ingredient) Drug/Non Drug Allergy documented on EMR Reaction Allergy Type Onset Date Status CEPHLOSPORINS (uncoded) anaphylaxis Allergy Active REASON FOR VISIT Multum To Medispan Conversion Encounter Medications Medication SIG (Take, Route, Frequency, Duration) Notes Start Date End Date Status Losartan Potassium 60mg *Please review and pick correct strength-formulati on from Medispan options. If intended option is not shown, discontinue and re-order from Quick Search* Active oxyCODONE-Acetamin ophen 5-325 MG Tablet 1 tab(s) orally every 6 hours Not-Taking Ibuprofen 800 MG Tablet 1 tab(s) orally bid Not-Taking Encounters Encounter Location Date Provider Diagnosis [facility] Primary [address] [place] [phone] 09/18/2025 Provider Migration Plan Of Treatment No Information Progress Notes * Norberto SARMIENTOhDOB:06/1975 (50 yo M)Acc No.[id number]:09/18/2025 Patient: Juan Hartman Provider: :1975 A ge:50 Y S ex:Male Date:09/18/2025 Address:[address] [facility] Pcp:x [place] [facility] Structured Data:Country Of [place] : [place]; Preferred method of communication : phone Subjective: * Chief Complaints: * M ultum To Medispan Conversion Encounter * Medications: T akingLosartan Potassium , Notes to Pharmacist: 60mg *Please review and pick correct strength-formulation from Medispan options. If intended option is not shown, discontinue and re-order from Quick Search*Taking Losartan Potassium , Notes to Pharmacist: 60mg *Please review and pick correct strength-formulation from Medispan options. If intended option is not shown, discontinue and re-order from Quick Search*Not-TakingIbuprofen 800 MG Tablet 1 tab(s) orally bid oxyCODONE- Acetaminophen 5-325 MG Tablet 1 tab(s) orally every 6 hours Not-Taking Ibuprofen 800 MG Tablet 1 tab(s) orally bid Not-Taking oxyCODONE-Acetaminophen 5-325 MG Tablet 1 tab(s) orally every 6 hours * Allergies: C EPHLOSPORINS: anaphylaxis - Allergy * Electronic signature of Prov ider Migration on 09/19/2025 at 08:10 AM [employer] Sign off status: Pending * Provider: Date: 11/18/2024 Generated for Chelo fisher/Trey/Verenicesmitting on: 11/19/2024 08:10 AM [employer]
--- OUTSIDE RECORDS SUMMARY | 2025-09-19 08:10 | XMS_ITS | Clinical Summary ---
Author Organization [employer] [facility] Address [address] [place] [address] Care Team Providers Care Contract Administration Specialist Name Role Phone Clinic, No Pcp Or Primary Care Provider Unavaila ble Allergies Active Allergy Reactions Criticality Noted Date Comments Amlodipine Edema 03/22/2020 Cefazolin *Unknown 2024 Shellfish Containing Products Anaphylaxis High 02/28 [place] Anaphylaxis High 04/18/2014 Medications losartan (COZAAR) 50 [...] - 1-dose 75+ series) 2048 Insurance [facility] Care Teams Contract Administration Specialist Relationship Specialty Start Date End Date Clinic, No Pcp Or . PCP - General 02/09/24
[2025-09-19 08:11] VITALS: BP 148/105; PULSE 102; RESP 28; TEMP 37.3; O2SAT 100; BMI 25.7
[2025-09-19 08:20] VITALS: O2SAT 100
[2025-09-19 08:23] LABS: Glucose, Point-of-Care* 112 mg/dl (60-115)
[2025-09-19 08:30] VITALS: PULSE 86; O2SAT 100
--- NOTE | 2025-09-19 08:48 | ED_ITS ---
HPI - General Adult General Time Seen by Provider: 08:49 Date Seen: 09/19/25 Chief complaint: Abdominal Pain Stated complaint: Anxiety Time Seen by Provider: 09/19/25 08:48 Source: patient, RN notes reviewed and old records reviewed Mode of arrival: ambulatory Limitations: no limitations History of Present Illness HPI narrative: This 50-year-old male is brought in by EMS with numbness tingling in his hands, carpal spasms, dizziness. He woke this morning and just was not feeling right. He was getting ready to take his daughter to the bus stop, CAD had to drive her. Got into the car and felt like he was dizzy, not spinning, more like he was going to pass out. He started getting numbness and tingling in his hands, started to have his vision close in. He did call 911. The airplane dispatch clerk for please assisted him to the ground, he thinks he may have actually went out for few seconds. Be had a little abdominal discomfort with that. He felt like he was going to , was wondering if he was having a heart attack or a stroke. 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 He at the time I am seeing him, is feeling better. Hands maybe still feel a little crampy but overall better. 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 He is cysts people of [place] descent that are in nursing homes or have need for financial services, he over sees these and thus this these people in being taken advantage of. His Anna is also here, she is a [employer] employee as well, they are not getting paid at this time, do not know about back payment. He does carry an underlying [facility] the [facility]. He has never had panic attacks before. He was in last week on September 13, had a similar episode. I did review with he and his Melisa that I am concerned that these are panic attacks. Nursing staff did do a point of care troponin and EKG on arrival, these are reassuring. He is back to baseline when I see him without intervention. Related Data Home Medications ?Medication ?Instructions ?Recorded ?Confirmed sildenafil 100 mg tablet 100 mg PO PRN sexual activit y 12/31/22 08/19/24 losartan 100 mg tablet 100 mg PO QDAY 10/03/24 11/0 3/25 Previous Rx's ?Medication ?Instructions ?Recorded meclizine 25 mg tablet 25 mg PO QID #20 tabs hydroxyzine HCl 25 mg tablet 25 - 50 mg (1 - 2 x 25 mg ) PO Q8H 09/19/25 PRN #20 tabs Allergies Allergy/AdvReac Type Severity Reaction Status Date / Time Cephalosporins Allergy Severe Verified 09/13/25 13:17 shellfish derived Allergy Severe Anaphylaxis Verified 09/13/25 13:17 tree nut Allergy Severe Anaphylaxis Verified 09/13/25 13:17 Review of Systems Status of ROS: Reports: 6 or more systems reviewed and unremarkable except as noted in History and below [facility] Medical History Hand pain, right ?M79.641 - Pain in right hand (ICD-10) Surgical History Status post shoulder surgery ?Z98.890 - Other specified postprocedural states (ICD-10) History of partial nephrectomy ?Z90.5 - Acquired absence of kidney (ICD-10) History of hand surgery ?Z98.890 - Other specified postprocedural states (ICD-10) Family History Grandfather Heart disease Social History Narrative: Non-smoker Does not drink alcohol Does not use illicit drugs Smoking Status: Never smoker How often do you have a drink containing alcohol: 2-3 times a week How many standard drinks containing alcohol do you have on a typical day: 3 or 4 How often do you have six or more drinks on one occasion: Weekly AUDIT-C Alcohol total score: 7 Non-prescribed substance use: denies use Exam Const: Vital Signs, click to edit/add: Vital Signs - 24 hr 09/19/25 08:11 09/19/25 08:20 09/19/25 08:30 Temperature 99.2 F Pulse Rate 86 Pulse Rate [Pulse Oximeter] 102 H Respiratory Rate 28 H Blood Pressure Blood Pressure [Le ft Upper Arm] 148/105 H Pulse Oximetry 100 100 100 Oxygen Delivery Me thod Room Air 09/19/25 09:01 Temperature Pulse Rate 90 Pulse Rate [Pulse Oximeter] Respiratory Rate 20 Blood Pressure 134/82 Blood Pressure [Le ft Upper Arm] Pulse Oximetry 100 Oxygen Delivery Me thod This 50-year-old male is alert, interactive, no apparent distress, seen in exam room 6 and lying in bed. He does seem mildly anxious, concerned about his symptoms. Pupils equal round reactive, sclerae clear, extraocular movements intact, symmetrical facial function. CV regular rate and rhythm, no murmur, lungs are clear, good air entry, no wheezing crackles, no tachypnea. Abdomen is soft, nontender, nondistended, organomegaly, rebound or guarding. Neuro grossly normal, no focal deficits noted. Speech is normal. Documenting provider has reviewed patient's vital signs: yes Course Course ED Course: Patient in [place] and his spent some time discussing strokes verses heart attacks verses anxiety/panic attacks. The fact that he has bilateral symptoms, the features that her accompanying these attacks and normal function in between, complete resolution of symptoms, this is not go with stroke pathology. He did admit that he worries about recurrence of his clear cell carcinoma, he is aware that it can metastasized to the brain. We did discuss head CT imaging and he ultimately declined which I think is very appropriate. These seem very classic symptoms for panic attack. He is not spinning with them, he feels like he is going to pass out. He does have significant life stressors which could have induced this and does carry underlying anxiety disorder diagnosis. Will do some basic labs, his EKG is reassuring, nursing staff did run a point of care troponin. I think that is reasonable but this patient clearly is having panic attacks. We are going to have him try a dose of hydroxyzine here, make sure he does tolerate this and there there are no side effects. Reevaluation(s) Time of Reevaluation #1: 10:15 Reevaluation #1: Patient is feeling better. He is not too sedated from the 20/5 mg of hydroxyzine. We discussed trying some behavioral techniques to help with panic attacks. He really does not want medication. We did review a prescription of hydroxyzine which she will take. We reviewed that where his benzodiazepines can be addictive, I do not have this concern with the hydroxyzine it certainly can be helpful for anxiety. He does have an [facility], he should keep this in the can discuss this further. Vital Signs Vital signs: Initial Vital Signs Temperature 99.2 F 09/19/25 08:11 Temperature Source Temporal Artery Scan 09/19/25 08:11 Pulse Rate 102 H 09/19/25 08:11 Respiratory Rate 28 H 09/19/25 08:11 Blood Pressure 148/105 H 09/19/25 08:11 Blood Pressure Mean 119 H 09/19/25 08:11 Blood Pressure Position Supine 09/19/25 08:11 Pulse Oximetry 100 09/19/25 08:11 Oxygen Delivery Method Room Air 09/19/25 08:11 Vital Signs Temperature 99.2 F 09/19/25 08:11 Pulse Rate 102 H 09/19/25 08:11 Respiratory Rate 28 H 09/19/25 08:11 Blood Pressure 148/105 H 09/19/25 08:11 Pulse Oximetry 100 09/19/25 08:11 Oxygen Delivery Method Room Air 09/19/25 08:11 Temperature 99.2 F 09/19/25 08:11 Pulse Rate 90 09/19/25 09:01 Respiratory Rate 20 09/19/25 09:01 Blood Pressure 134/82 09/19/25 09:01 Pulse Oximetry 100 09/19/25 09:01 Oxygen Delivery Method Room Air 09/19/25 08:11 Medications Administered Medications: Generic Name Dose Route Start Last Admin Trade Name Freq PRN Reason Stop Dose Admin Sodium Chloride 1,000 mls @ 500 mls/hr 09/19/25 09:01 09/19/25 08:20 0.9 % Sodium Chloride 1000 Ml IV 09/19/25 11:00 500 mls/hr .Q2H ANDREW Administration Discontinued Medications Generic Name Dose Route Start Last Admin Trade Name Freq PRN Reason Stop Dose Admin Hydroxyzine Pamoate 25 mg 09/19/25 09:20 09/19/25 09:23 Hydroxyzine Pamoate 25 Mg Capsule PO 09/19/25 09:21 25 mg ONCE ONE Administration Medical Decision Making Lab Data Lab results reviewed: Yes I reviewed the patient's lab results Labs: Lab Results 09/19/25 09/19/25 09/19/25 Range/Units 08:20 08:22 08:58 WBC 5.74 (4.50-11.00) K/uL RBC 4.20 L (4.30-5.90) m/uL Hgb 14.6 (13.5-17.5) gm/dL Hct 39.0 (37.0-53.0) % MCV 93 (80-100) fL MCH 35 H (26-34) pg MCHC 37 H (32-36) gm/dL RDW Coeff of Jaclyn 11.7 (11.5-15.5) % Plt Count 199 (140-440) K/uL Neut % (Auto) 75.7 H (42.0-72.0) % Lymph % (Auto) 14.3 L (20-44) % [place] % (Auto) 7.3 (0.0-11.0) % Eos % (Auto) 1.7 (0.0-7.0) % Baso % (Auto) 0.7 (0.0-3.0) % Neut # (Auto) 4.30 (1.7-7.0) K/uL Lymph # (Auto) 0.80 L (0.90-2.90) K/uL [place] # (Auto) 0.40 (0.00-0.90) K/UL Eos # (Auto) 0.10 (0.00-0.50) K/uL Baso # (Auto) 0.04 (0.00-0.30) K/uL Abs Immat Gran (auto) 0.02 (0.00-0.30) K/uL Imm/Tot Granulo (auto) 0.3 % Sodium 137 (135-149) mmol/L Potassium 3.3 L (3.6-5.1) mmol/L Chloride 106 (96-114) mmol/L Carbon Dioxide 19 L (20-32) mmol/L Anion Gap 12 (7-15) mEq/L BUN 10 (7-30) mg/dL Creatinine 0.7 (0.5-1.5) mg/dL Estimated Creat Clear 115.41 Estimated GFR 111 ml/min Glucose 94 (60-115) mg/dL Calcium 9.0 (8.4-10.6) mg/dL Total Bilirubin 1.6 H (0.1-1.5) mg/dL AST 46 H (12-35) U/L ALT 35 (4-50) U/L Alkaline Phosphatase 51 (40-150) U/L Total Protein 7.5 (6.0-8.3) g/dL Albumin 4.6 (3.3-5.0) g/dL POC Glucose 112 (60-115) mg/dl POC Troponin I 0.00 L (0.01-0.04) ng/ml ECG Data Attestation: I personally reviewed and interpreted this ECG as follows: (Normal sinus rhythm, 84 beats per minute. No evidence of any ischemia or infarct.) Prior ECG tracings: available for review (Normal sinus rhythm today, did have sinus tachycardia on 09/13/2025 EKG) Discharge Plan Discharge Clinical Impression: Panic attack Patient Disposition: Home, Self-Care Condition: Stable Instructions: Panic Disorder (ED), Anxiety (ED), Panic Attack (ED) Additional Instructions: Keep your follow-up with your primary care provider, can discuss this further. You can try the hydroxyzine as needed, 1-2 tablets for return panic attack. If you have concerns about other symptoms, feel symptoms are not in line with panic attacks, do recommend that you seek re-evaluation. Activity Level: Activity as Tolerated Prescriptions: New hydroxyzine HCl 25 mg tablet 25 - 50 mg PO Q8H PRNQty: 20 0RF No Action losartan 100 mg tablet 100 mg PO QDAY sildenafil 100 mg tablet 100 mg PO PRN (Reason: sexual activity) meclizine 25 mg tablet 25 mg PO QID Qty: 20 0RF Follow Up/Referrals: Yokasta Balderas PA-C [Primary Care Provider, Family Practice] Stand Alone Forms: MyHealth Info Instructions
[2025-09-19 09:01] VITALS: BP 134/82; PULSE 90; RESP 20; O2SAT 100
[2025-09-19 09:11] LABS: Troponin, Point-of-Care* 0.00 ng/ml (0.01-0.04)
[2025-09-19 09:23] LABS: Albumin* 4.6 g/dL (3.3-5.0); Chloride* 106 mmol/L (96-114); Potassium* 3.3 mmol/L (3.6-5.1); Sodium* 137 mmol/L (135-149)
[2025-09-19 09:26] LABS: Alanine Aminotransferase* 35 U/L (4-50); Alkaline Phosphatase* 51 U/L (40-150); Anion Gap 12 mEq/L (7-15); Aspartate Amino Transferase* 46 U/L (12-35); Bilirubin Total* 1.6 mg/dL (0.1-1.5); Blood Urea Nitrogen* 10 mg/dL (7-30); Carbon Dioxide* 19 mmol/L (20-32); Creatinine* 0.7 mg/dL (0.5-1.5); Est. Creatinine Clearance* 115.41; Estimated Glomerular Filt Rate 111 ml/min; Total Protein* 7.5 g/dL (6.0-8.3)
[2025-09-19 09:27] LABS: Calcium* 9.0 mg/dL (8.4-10.6); Glucose* 94 mg/dL (60-115)
[2025-09-19 09:31] LABS: Hematocrit* 39.0 % (37.0-53.0); Hemoglobin* 14.6 gm/dL (13.5-17.5); Immature Granulocytes Abs Auto 0.02 K/uL (0.00-0.30); Immature Granulocytes Pct Auto 0.3 %; Mean Corpuscular HGB Conc 37 gm/dL (32-36); Mean Corpuscular Hemoglobin 35 pg (26-34); Mean Corpuscular Volume 93 fL (80-100); RDW Coefficient of Variation % 11.7 % (11.5-15.5); Red Blood Count* 4.20 m/uL (4.30-5.90); White Blood Count* 5.74 K/uL (4.50-11.00)
[2025-09-19 09:34] LABS: Lymphocytes Absolute Auto 0.80 K/uL (0.90-2.90); Slide Review Reflex No
== END 2025-09-19 10:38 | disposition home or self-care (01) ==
PROVIDERS: Emergency Provider Family Medicine; PCP Physician Assistant Medical
DX: F41.0 Panic disorder [episodic paroxysmal anxiety] (principal)
CPT/HCPCS: 36415; 80053; 82947; 84484; 85025; 93005; 94761; 96360; 96361; 99284; A9270; J7030